=== PATIENT | male | born 1955 | race Hispanic/Latino ===

== ENCOUNTER 2017-03-14 14:47 | Emergency (ER) | payer MEDICAID ==
--- NOTE | 2017-03-14 15:27 | ED PDOC ---
HPI: General Adult Time Seen by Provider: 03/14/17 15:00 Chief Complaint (Nursing): Lower Extremity Problem/Injury Chief Complaint (Provider): left leg pain History Per: Patient History/Exam Limitations: no limitations Additional History Per: Patient, Family Additional Complaint(s): 61yo male brought by family for complaint of chronic left leg pain and swelling over 5 years. Pain is now severe. Family states patient refuses to see physicians and only agrees to come today due to severity of pain. pt denies headache chest pain or other complaints.. pt here w family Past Medical History Reviewed: Historical Data, Nursing Documentation, Vital Signs Vital Signs: Last Vital Signs Temp 97.8 F 03/14/17 20:43 Pulse 99 H 03/14/17 20:43 Resp 16 03/14/17 20:43 BP 148/93 H 03/14/17 20:43 Pulse Ox 100 03/14/17 22:47 - Medical History PMH: Anxiety, Atrial Fibrillation, CHF, Depression - Surgical History Surgical History: No Surg Hx - Family History Family History: States: Unknown Family Hx - Living Arrangements Living Arrangements: With Family - Social History Current smoker - smoking cessation education provided: No Alcohol: None Drugs: Denies - Immunization History Hx Tetanus Toxoid Vaccination: No Hx Influenza Vaccination: No Hx Pneumococcal Vaccination: No - Allergies Allergies/Adverse Reactions: Allergies Allergy/AdvReac Type Severity Reaction Status Date / Time No Known Allergies Allergy Verified 03/14/17 15:01 Review of Systems ROS Statement: Except As Marked, All Systems Reviewed And Found Negative Constitutional: Negative for: Fever Musculoskeletal: Positive for: Leg Pain (+swelling- left side) Physical Exam - Reviewed Nursing Documentation Reviewed: Yes Vital Signs Reviewed: Yes - Physical Exam Appears: Positive for: Non-toxic, No Acute Distress Head Exam: Positive for: ATRAUMATIC, NORMAL INSPECTION, NORMOCEPHALIC Skin: Positive for: Warm, Dry Eye Exam: Positive for: EOMI, PERRL ENT: Positive for: Other (Left ear cerumen but no sign of infection) Cardiovascular/Chest: Positive for: Regular Rate, Rhythm Respiratory: Positive for: Normal Breath Sounds. Negative for: Rales, Rhonchi, Wheezing Gastrointestinal/Abdominal: Positive for: Normal Exam, Soft Extremity: Positive for: Other (Left leg severe lymphedema. neurovascular intact ) Neurologic/Psych: Positive for: Alert, Oriented - Laboratory Results Result Diagrams: 03/14/17 16:30 03/14/17 16:00 - ECG ECG Rhythm: Positive for: Atrial Fibrillation (history of afib, rate controlled) O2 Sat by Pulse Oximetry: 100 (RA) Pulse Ox Interpretation: Normal Medical Decision Making Medical Decision Making: CC: lower extremity swelling left side appears like lymphadema 1529 Podiatry paged. Plan includes US left lower extremity, XR Left Tibia Fibula, Labs, blood & urine cultures, percocet. 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 Time: 170 U/S results reviewed PROCEDURE: Left lower extremity duplex venous sonography. HISTORY: Left lower extremity swelling. COMPARISON: None TECHNIQUE: Real-time ultrasound scan of the veins with color flow, spectral waveform analysis and compression FINDINGS: Left lower extremity: Normal flow, augmentation and compressibility were noted. No evidence of deep vein thrombosis. Calf edema identified. This is producing some narrowing of the left posterior tibial vein. IMPRESSION: Negative study for acute deep vein thrombosis. Time: 190 CT-head results reviewed PROCEDURE: CT HEAD WITHOUT CONTRAST. HISTORY: left sided pain COMPARISON: None available. TECHNIQUE: Axial computed tomography images were obtained through the head/brain without intravenous contrast. Radiation dose: Total exam DLP = 1702.31 mGy-cm. This CT exam was performed using one or more of the following dose reduction techniques: Automated exposure control, adjustment of the mA and/or kV according to patient size, and/or use of iterative reconstruction technique. FINDINGS: HEMORRHAGE: No intracranial hemorrhage. BRAIN: Diffuse atrophy with prominence of the ventricles and sulci noted. No mass effect or edema. Mild scattered white matter hypodensities, which are nonspecific, but often seen with chronic microvascular ischemic disease. Please note that MRI with diffusion imaging is more sensitive in the detection of acute ischemic event. VENTRICLES: No hydrocephalus. CALVARIUM: Unremarkable. PARANASAL SINUSES: Unremarkable as visualized. No significant inflammatory changes. MASTOID AIR CELLS: Unremarkable as visualized. No inflammatory changes. OTHER FINDINGS: Opacification of the left greater than right external auditory canals, likely cerumen. IMPRESSION: Generalized atrophy. Mild scattered nonspecific white matter changes. Opacification of the left greater than right external auditory canals, likely cerumen. Time: 1949 labs reviewed, Will replete potassium at this time. Discussed all results with patient and family, requesting patient be discharged home. emphazied to pt and family importance of outp follow up soon. States they will make sure patient follows up in 1-2 days in clinic. Patient notes he feeling completely better with his leg wrapped, no complaints at this time. Debrox prescription given to patient for his left ear cerumen. Disposition - Clinical Impression Clinical Impression: Acquired lymphedema of lower extremity - Patient ED Disposition Is Patient to be Admitted: No Counseled Patient/Family Regarding: Studies Performed, Diagnosis, Need For Followup - Disposition Referrals: [facility] [Outside] [facility] [Outside] Podiatry Clinic [Outside] Disposition: Routine/Home Disposition Time: 17:35 Condition: IMPROVED Additional Instructions: YOU MUST FOLLOW UP WITH THE CLINIC IN 1-2 DAYS WITHOUT FAIL. YOU ALSO SHOULD FOLLOW UP FOR YOUR LEFT LEG IN PODIATRY CLINIC. CONTINUE DEBROX DROPS IN YOUR LEFT EAR RETURN TO THE ED WITH ANY WORSENING OR CONCERNING SYMPTOMS. Instructions: Cerumen Impaction (ED), Leg Edema (ED) Additional Comments - Additional Comments Additional Comments: Scribe Attestation: Documented by Dewey Loredo acting as a scribe for Angelica Sawant MD. Scribe Attestation: All medical record entries made by the Scribe were at my direction and personally dictated by me. I have reviewed the chart and agree that the record accurately reflects my personal performance of the history, physical exam, medical decision making, and the department course for this patient. I have also personally directed, reviewed, and agree with the discharge instructions and disposition.
[2017-03-14] MEDS ORDERED: Oxycodone/Acetaminophen 5/325 mg Tab PO ONE (15:43)
--- NOTE | 2017-03-14 16:10 | CP.PCM.CON ---
History of Present Illness - History of Present Illness History of Present Illness: 61 year old male with PMHx of Afib, CHF, depression presents to the ED for left leg swelling and pain. He states that it has been swollen, draining and painful for 5 years. He states that he hasnt seen a doctor for this problem, or any doctor since 2008. He states that he was scared to be seen. He came today due to having pain in his left leg. He denies taking any pain medication for the left leg. Past Patient History - Past Social History Alcohol: None Drugs: Denies - CARDIAC Hx Atrial Fibrillation: Yes Hx Congestive Heart Failure: Yes - ENDOCRINE/METABOLIC Hx Diabetes Mellitus Type 2: Yes (possibly) - MUSCULOSKELETAL/RHEUMATOLOGICAL Hx Musculoskeletal Disorders: Yes - PSYCHIATRIC Hx Anxiety: Yes Hx Depression: Yes Meds Allergies/Adverse Reactions: Allergies Allergy/AdvReac Type Severity Reaction Status Date / Time No Known Allergies Allergy Verified 03/14/17 15:01 Physical Exam - Constitutional Appears: Non-toxic, No Acute Distress - Extremities Exam Additional comments: Vasc: DP and PT pulses non-palpable due to edema. CFT < 5 seconds to all digits b/l. Left lower extremity has +3 pitting edema Neuro:Gross sensation intact b/l Ortho: No pain on compression to left calf. Mild pain on palpation to left lower leg where region of erythema is located. Derm: Circumferential erythema, and thickening of the skin noted to the distal aspect of the left leg. Serous drainage noted. Mild malodor noted. No purulence, no probe to bone, no ulcerations, no increase in warmth noted. - Neurological Exam Neurological exam: Alert, Oriented x3 - Psychiatric Exam Psychiatric exam: Normal Affect, Normal Mood Results - Vital Signs Recent Vital Signs: Last Vital Signs Temp 98.3 F 03/14/17 15:02 Pulse 133 H 03/14/17 15:02 Resp 18 03/14/17 15:02 BP 199/112 H 03/14/17 15:02 Pulse Ox 100 03/14/17 15:51 - Labs Result Diagrams: 03/14/17 16:30 03/14/17 16:00 Assessment & Plan - Assessment and Plan (Free Text) Assessment: 61 year old male with left lower extremity edema Plan: Patient examined and evaluated Chart, labs, vitals reviewed Discussed in detail with attending, Dr. Mehta US reviewed-no DVT noted Radiographs reviewed- no acute fracture noted LLE dressed with xeroform, ABD, kerlix, TRENA Patient to follow up in Podiatry clinic
[2017-03-14] MEDS ORDERED: Oxycodone/Acetaminophen 5/325 mg Tab ONE (16:16)
--- NOTE | 2017-03-14 16:39 | US ---
PROCEDURE: Left lower extremity duplex venous sonography. HISTORY: Left lower extremity swelling. COMPARISON: None TECHNIQUE: Real-time ultrasound scan of the veins with color flow, spectral waveform analysis and compression FINDINGS: Left lower extremity: Normal flow, augmentation and compressibility were noted. No evidence of deep vein thrombosis. Calf edema identified. This is producing some narrowing of the left posterior tibial vein. IMPRESSION: Negative study for acute deep vein thrombosis.
[2017-03-14 16:59] LABS: ALKALINE PHOSPHATASE 87 U/L (38-126); ALT/SGPT 29 U/L (21-72); AST/SGOT 30 U/L (17-59); BILIRUBIN,TOTAL 0.6 mg/dl (0.2-1.3); BLOOD UREA NITROGEN 6 mg/dl (9-20); CALCIUM 9.6 mg/dL (8.4-10.2); CARBON DIOXIDE 26 mmol/L (22-30); CHLORIDE 106 mmol/L (98-107); GFR AFRICAN-AMERICAN > 60; GLUCOSE,RANDOM 127 mg/dL (75-110); POTASSIUM 3.4 MMOL/L (3.6-5.0); SODIUM 146 mmol/l (132-148); TOTAL PROTEIN 8.6 G/DL (6.3-8.2)
[2017-03-14] MEDS ORDERED: Carbamide Peroxide OTIC SOLUTION AU STA (17:03)
[2017-03-14 17:33] LABS: BASO % 0.6 % (0.0-2.0); EOS # 0.1 K/uL (0.0-0.7); EOS % 1.7 % (0.0-4.0); HEMATOCRIT 41.6 % (35.0-51.0); LYMPH % 16.4 % (20.0-40.0); MEAN CELL VOLUME 90.3 fl (80.0-94.0); MEAN CORPUSCULAR HEMOGLOBIN 30.6 pg (27.0-31.0); MEAN CORPUSCULAR HGB CONC 33.9 g/dL (33.0-37.0); MEAN PLATELET VOLUME 7.9 fl (7.2-11.7); MONO # 0.6 K/uL (0.0-0.8); MONO % 10.1 % (0.0-10.0); NEUT # 4.2 K/uL (1.8-7.0); NEUT % 71.2 % (50.0-75.0); NRBC % 0.1 % (0.0-0.0)
[2017-03-14 18:16] LABS: RBC URINE 1 /hpf (0-3); URINE BILIRUBIN NEGATIVE (NEGATIVE); URINE BLOOD NEGATIVE (NEGATIVE); URINE COLOR YELLOW (YELLOW); URINE GLUCOSE (UA) NEG (Normal); URINE KETONE NEGATIVE (NEGATIVE); URINE LEUKOCYTE ESTERASE NEG Leu/uL (Negative); URINE PROTEIN NEGATIVE (NEGATIVE); URINE UROBILINOGEN 0.2-1.0 mg/dL (0.2-1.0); WBC URINE < 1 /hpf (0-5)
--- NOTE | 2017-03-14 18:55 | CT ---
PROCEDURE: CT HEAD WITHOUT CONTRAST. HISTORY: left sided pain COMPARISON: None available. TECHNIQUE: Axial computed tomography images were obtained through the head/brain without intravenous contrast. Radiation dose: Total exam DLP = 1702.31 mGy-cm. This CT exam was performed using one or more of the following dose reduction techniques: Automated exposure control, adjustment of the mA and/or kV according to patient size, and/or use of iterative reconstruction technique. FINDINGS: HEMORRHAGE: No intracranial hemorrhage. BRAIN: Diffuse atrophy with prominence of the ventricles and sulci noted. No mass effect or edema. Mild scattered white matter hypodensities, which are nonspecific, but often seen with chronic microvascular ischemic disease. Please note that MRI with diffusion imaging is more sensitive in the detection of acute ischemic event. VENTRICLES: No hydrocephalus. CALVARIUM: Unremarkable. PARANASAL SINUSES: Unremarkable as visualized. No significant inflammatory changes. MASTOID AIR CELLS: Unremarkable as visualized. No inflammatory changes. OTHER FINDINGS: Opacification of the left greater than right external auditory canals, likely cerumen. IMPRESSION: Generalized atrophy. Mild scattered nonspecific white matter changes. Opacification of the left greater than right external auditory canals, likely cerumen.
[2017-03-14] MEDS ORDERED: Potassium Chloride 20 mEq ER Tab PO ONE (19:30)
[2017-03-14 20:44] VITALS: BP 148/93; PULSE 99; RESP 16; TEMP 97.8
[2017-03-14 22:42] VITALS: O2SAT 100
--- NOTE | 2017-03-15 18:28 | CARD ---
APPROVED REPORT EKG Measurement Heart [id number] <Conclusion> Atrial fibrillation Nonspecific ST abnormality Abnormal ECG
--- NOTE | 2017-03-16 10:30 | RAD ---
PROCEDURE: Left tibia and fibula HISTORY: leg swelling COMPARISON: None TECHNIQUE: Standard protocol for this study/examination. FINDINGS: No acute osseous abnormalities. Incomplete degenerative changes left knee and ankle. Profound soft tissue swelling, edema IMPRESSION: Soft tissue swelling without acute articular or osseous abnormality.
== END 2017-03-14 21:26 | disposition home or self-care (01) ==
LOC: H.ER 14:47
DX: I89.0 Lymphedema, not elsewhere classified (principal); M79.605 Pain in left leg; F41.9 Anxiety disorder, unspecified; I48.91 Unspecified atrial fibrillation

== ENCOUNTER 2017-09-21 00:59 | Inpatient (IN) | payer MEDICAID, OTHER ==
[2017-09-21 01:00] VITALS: BMI 44.3
--- NOTE | 2017-09-21 02:07 | ED PDOC ---
Upper Extremity Pain/Injury Time Seen by Provider: 09/21/17 01:15 Chief Complaint (Nursing): Upper Extremity Problem/Injury Chief Complaint (Provider): Numbness and Chest Palpitation History Per: Patient History/Exam Limitations: no limitations Onset/Duration Of Symptoms: Hrs Current Symptoms Are (Timing): Gone Now Additional Complaint(s): Patient is a 62 y/o male with a past medical history of atrial fibrillation ( not on any treatment) and depression, who presents to the ED complaining of chest palpitations and numbness of the entire left side of the body at 21:00 tonight. Patient notes the sensation felt like pins and needles, and reports that he could not move his left arm for 2 minutes as it went completely "". He adds that although his left leg is always weak it was even weaker during those 2 minutes, and that although its strength returned to normal the tingling persisted for 1 to 2 hours. Patient claims he did not come to the ED because " he doesn't want to be bothered", and states that he no longer has any complaints or symptoms upon arriving to the ED aside from palpitations. PCP: FAMILY PROVIDER,NO NIHSS Stroke Scale - Date/Time Evaluation Performed Date Performed: 09/21/17 Time Performed: 01:30 When Was NIHSS Performed: Baseline - How Severe is the Stroke Level of Consciousness: 0=Alert LOC to Questions: 0=Both comments correct LOC to commands: 0=Obeys both correctly Best Gaze: 0=Normal Visual: 0=No visual loss Motor Arm - Left: 0=No drift Motor Arm - Right: 0=No drift Motor Leg - Left: 0=No drift Motor Leg - Right: 0=No drift Limb Ataxia: 0=Absent Sensory: 0=Normal Best Language: 0=No aphasia Dysarthia: 0=Normal articulation Extinction & Inattention (Neglect): 0=Normal, no object Past Medical History Reviewed: Historical Data, Nursing Documentation, Vital Signs Vital Signs: Last Vital Signs Temp 97.8 F 09/21/17 01:20 Pulse 106 H 09/21/17 01:56 Resp 19 09/21/17 01:56 BP 135/72 09/21/17 01:56 Pulse Ox 98 09/21/17 01:56 - Medical History PMH: Anxiety, Atrial Fibrillation, CHF, Depression - Family History Family History: States: No Known Family Hx, Unknown Family Hx - Immunization History Hx Tetanus Toxoid Vaccination: No Hx Influenza Vaccination: No Hx Pneumococcal Vaccination: No - Home Medications Home Medications: Ambulatory Orders Medication Instructions Recorded No Known Home Med 09/21/17 - Allergies Allergies/Adverse Reactions: Allergies Allergy/AdvReac Type Severity Reaction Status Date / Time basil Allergy ANAPHYLAXIS Verified 09/21/17 01:27 raspberry Allergy RASH Verified 09/21/17 02:00 shellfish derived Allergy ANAPHYLAXIS Verified 09/21/17 01:27 Review of Systems ROS Statement: Except As Marked, All Systems Reviewed And Found Negative Cardiovascular: Positive for: Palpitations Neurological: Positive for: Weakness (left leg), Numbness (left side of body and left arm) Physical Exam - Reviewed Nursing Documentation Reviewed: Yes Vital Signs Reviewed: Yes - Physical Exam Appears: Positive for: No Acute Distress (Appears obese) Head Exam: Positive for: ATRAUMATIC, NORMOCEPHALIC Skin: Positive for: Normal Color, Warm, Dry Eye Exam: Positive for: Normal appearance, EOMI, PERRL Neck: Positive for: Normal, Painless ROM, Supple Cardiovascular/Chest: Positive for: Irregularly Irregular. Negative for: Murmur Respiratory: Positive for: Normal Breath Sounds. Negative for: Respiratory Distress Gastrointestinal/Abdominal: Positive for: Normal Exam, Soft. Negative for: Tenderness Back: Positive for: Normal Inspection. Negative for: L CVA Tenderness, R CVA Tenderness, Vertebral Tenderness Extremity: Positive for: Normal ROM, Swelling (left leg chronically swollen with thrombophlebitis). Negative for: Tenderness Neurologic/Psych: Positive for: Alert, Oriented (x3). Negative for: Motor/ Sensory Deficits - Laboratory Results Result Diagrams: 09/21/17 01:50 09/21/17 03:04 - ECG O2 Sat by Pulse Oximetry: 98 (RA) Pulse Ox Interpretation: Normal Medical Decision Making Medical Decision Making: Time: 01:34 --Initial Impression: Atrial fibrillation with RVR and possible Transient Ischemic Attack --Initial Plan: --Type and Screen --EKG --Labs --Troponin I --PT/PTT --Chest XR --Cardizem 10mg IVP --Urinalysis Time: 01:59 --CT Head W/O Contrast Time: 02:17 --Crisis Evaluation Time: 02:48 CT Head W/O Contrast Results FINDINGS: Brain: Mild atrophy. No intracranial hemorrhage. No mass. Few scattered foci of decreased attenuation within periventricular/subcortical white matter. No definite edema. Ventricles: No hydrocephalus. Bones/joints: No acute fracture. Soft tissues: Unremarkable. Vasculature: Minimal atherosclerotic disease of intracranial arteries. Sinuses: No acute sinusitis. Mastoid air cells: No mastoid effusion. Orbits: Unremarkable as visualized. IMPRESSION: 1. Nonspecific white matter changes. Acute infarction may be CT occult within first 24 hours. If a focal deficit persists, consider followup CT or MRI for further evaluation. 2. Incidental/non-acute findings are described above. 345 Pt. states that he is feeling much better. Agrees to stay in hospital. Dr. Quiroz aware. ASA ordered. Scribe Attestation: Documented by Trinidad Cantrell, acting as a scribe for Jonh Layne MD Provider Scribe Attestation: All medical record entries made by the Scribe were at my direction and personally dictated by me. I have reviewed the chart and agree that the record accurately reflects my personal performance of the history, physical exam, medical decision making, and the department course for this patient. I have also personally directed, reviewed, and agree with the discharge instructions and disposition. Disposition - Clinical Impression Clinical Impression: TIA (transient ischemic attack), Atrial fibrillation - Disposition Disposition Time: 03:45 Condition: STABLE Forms: [employer] ([place])
[2017-09-21 02:12] LABS: BASO % 0.3 % (0.0-2.0); EOS # 0.1 K/uL (0.0-0.7); EOS % 1.5 % (0.0-4.0); HEMATOCRIT 44.1 % (35.0-51.0); LYMPH # 1.2 K/uL (1.0-4.3); LYMPH % 15.3 % (20.0-40.0); MEAN CELL VOLUME 92.3 fl (80.0-94.0); MEAN CORPUSCULAR HEMOGLOBIN 30.5 pg (27.0-31.0); MEAN PLATELET VOLUME 7.9 fl (7.2-11.7); MONO # 0.8 K/uL (0.0-0.8); MONO % 10.1 % (0.0-10.0); NEUT # 5.5 K/uL (1.8-7.0); NEUT % 72.8 % (50.0-75.0); RED CELL DISTRIBUTION WIDTH 14.7 % (11.5-14.5); WHITE BLOOD COUNT 7.6 K/uL (4.8-10.8)
[2017-09-21 02:18] LABS: PARTIAL THROMBOPLASTIN TIME 31.4 Seconds (25.6-37.1)
--- NOTE | 2017-09-21 02:49 | CT ---
EXAM: CT Head Without Intravenous Contrast CLINICAL HISTORY: 62 years old, male; Signs and symptoms; Weakness, extremity; Left; Additional info: L sided weakness, afib TECHNIQUE: Axial computed tomography images of the head/brain without intravenous contrast. All CT scans at this facility use one or more dose reduction techniques, viz.: automated exposure control; ma/kV adjustment per patient size (including targeted exams where dose is matched to indication; i.e. head); or iterative reconstruction technique. Coronal and sagittal reformatted images were created and reviewed. COMPARISON: CT - HEAD W/O CONTRAST 2017-03-14 18:37 FINDINGS: Brain: Mild atrophy. No intracranial hemorrhage. No mass. Few scattered foci of decreased attenuation within periventricular/subcortical white matter. No definite edema. Ventricles: No hydrocephalus. Bones/joints: No acute fracture. Soft tissues: Unremarkable. Vasculature: Minimal atherosclerotic disease of intracranial arteries. Sinuses: No acute sinusitis. Mastoid air cells: No mastoid effusion. Orbits: Unremarkable as visualized. IMPRESSION: 1. Nonspecific white matter changes. Acute infarction may be CT occult within first 24 hours. If a focal deficit persists, consider followup CT or MRI for further evaluation. 2. Incidental/non-acute findings are described above.
[2017-09-21 03:23] LABS: BLOOD UREA NITROGEN 11 mg/dl (9-20); CALCIUM 9.4 mg/dL (8.4-10.2); CARBON DIOXIDE 25 mmol/L (22-30); CHLORIDE 106 mmol/L (98-107); GFR AFRICAN-AMERICAN > 60; GLUCOSE,RANDOM 117 mg/dL (75-110); POTASSIUM 3.7 MMOL/L (3.6-5.0); SODIUM 144 mmol/l (132-148)
[2017-09-21 03:41] LABS: RBC URINE < 1 /hpf (0-3); URINE BACTERIA RARE (<OCC); URINE BILIRUBIN NEGATIVE (NEGATIVE); URINE BLOOD SMALL (NEGATIVE); URINE COLOR STRAW (YELLOW); URINE GLUCOSE (UA) NEG (Normal); URINE KETONE NEGATIVE (NEGATIVE); URINE LEUKOCYTE ESTERASE NEG Leu/uL (Negative); URINE PROTEIN NEGATIVE (NEGATIVE); URINE UROBILINOGEN 0.2-1.0 mg/dL (0.2-1.0); WBC URINE < 1 /hpf (0-5)
--- NOTE | 2017-09-21 04:07 | CP.PCM.HP ---
History of Present Illness - History of Present Illness History of Present Illness: PCP: None Chief Complaint: Numbness to the left side of the body/ Palpitations The patient was seen and examined in the ED HPI: 62 years old male with hx of Chronic left lower extremity lymphedema, HTN, CHF, A Fib not on anticoagulant, non compliant with medications, comes with sudden unset of palpitation, associated with numbness and pins and needle like sensation to the entire left side of the body. He could not move the left upper extremity for 2 minutes because of weakness. His left leg was also having the same sensation and weakness. The symptoms resolved before he arrived to the ED. In the ED his NIHSS was 0 and the patient was given a bolus of Cardizem for rapid A Fib. PMH: Anxiety and Depression; Atrial Fibrillation, CHF; DM II; HTN; Chronic Left leg lymphedema with ulceration PSH: No Surgical Hx SH: No illegal drug use; no Alcohol; No Smoking of Cigarettes; Live with family FH: States: No Known Family Hx, Unknown Family Hx Allergies: NKDA Basil; Raspberry; Shellfish Medication: None Present on Admission - Present on Admission Any Indicators Present on Admission: No History of DVT/PE: No History of Uncontrolled Diabetes: No Urinary Catheter: No Decubitus Ulcer Present: No Review of Systems - Constitutional Constitutional: absent: Anorexia, Chills, Fatigue, Fever, Lethargy - EENT Eyes: Requires Corrective Lenses. absent: Diplopia, Floaters, Photophobia, Sees Flashes Ears: absent: Decreased Hearing, Ear Discharge, Tinnitus Nose/Mouth/Throat: absent: Epistaxis, Nasal Congestion, Nasal Discharge, Sinus Pain, Sinus Pressure - Cardiovascular Cardiovascular: Dyspnea, Palpitations. absent: Chest Pain, Paroxysmal Nocturnal Dyspnea - Respiratory Respiratory: Dyspnea. absent: Cough, Wheezing, Stridor - Gastrointestinal Gastrointestinal: absent: Abdominal Pain, Constipation, Diarrhea, Nausea, Vomiting Additional comments: Abdominal mass. - Genitourinary Genitourinary: Urinary Frequency. absent: Dysuria, Flank Pain, Hematuria - Musculoskeletal Musculoskeletal: absent: Arthralgias Additional comments: Pain to left lower extremity - Integumentary Additional comments: left leg lymphedema - Neurological Neurological: Numbness, Focal Weakness, Paresthesias, Weakness. absent: Confusion Additional comments: left side of body weakness and paresthesias - Psychiatric Psychiatric: Anxiety, Depression. absent: Panic Attacks - Endocrine Endocrine: Palpitations, Polyuria. absent: Polydipsia, Polyphagia - Hematologic/Lymphatic Hematologic: absent: Easy Bleeding, Easy Bruising Past Patient History - Past Medical History & Family History Past Medical History?: Yes - Past Social History Smoking Status: Never Smoked Chewing Tobacco Use: No Cigar Use: No Alcohol: None Drugs: Denies Home Situation {Lives}: With Family - CARDIAC Hx Atrial Fibrillation: Yes Hx Congestive Heart Failure: Yes - PULMONARY Hx Emphysema: No - NEUROLOGICAL Hx Neurological Disorder: No - HEENT Hx HEENT Problems: No - RENAL Hx Chronic Kidney Disease: No - ENDOCRINE/METABOLIC Hx Diabetes Mellitus Type 2: Yes (possibly) - HEMATOLOGICAL/ONCOLOGICAL Hx Blood Disorders: No - INTEGUMENTARY Hx Dermatological Problems: No - MUSCULOSKELETAL/RHEUMATOLOGICAL Hx Musculoskeletal Disorders: Yes Other/Comment: left leg lymphedema - GASTROINTESTINAL Hx Gastrointestinal Disorders: No - GENITOURINARY/GYNECOLOGICAL Hx Genitourinary Disorders: No - PSYCHIATRIC Hx Anxiety: Yes Hx Depression: Yes - SURGICAL HISTORY Hx Surgeries: No - ANESTHESIA Hx Anesthesia: No Meds Allergies/Adverse Reactions: Allergies Allergy/AdvReac Type Severity Reaction Status Date / Time basil Allergy ANAPHYLAXIS Verified 09/21/17 01:27 raspberry Allergy RASH Verified 09/21/17 02:00 shellfish derived Allergy ANAPHYLAXIS Verified 09/21/17 01:27 Physical Exam - Constitutional Appears: No Acute Distress - Head Exam Head Exam: ATRAUMATIC, NORMAL INSPECTION, NORMOCEPHALIC - Eye Exam Eye Exam: EOMI, Normal appearance Pupil Exam: NORMAL ACCOMODATION, PERRL - ENT Exam ENT Exam: Mucous Membranes Moist, Normal Exam, Normal External Ear Exam, Normal Oropharynx - Neck Exam Neck exam: Positive for: Full Rom, Normal Inspection. Negative for: Lymphadenopathy, Tenderness - Respiratory Exam Respiratory Exam: Clear to Auscultation Bilateral. absent: Rhonchi, Wheezes - Cardiovascular Exam Cardiovascular Exam: Irregular Rhythm, +S1, +S2. absent: Gallop, JVD - GI/Abdominal Exam Additional comments: Obese, soft, non tender with mass 6cm x6cm at the umbilical region, mobile and crepitus of palpation. - Rectal Exam Rectal Exam: Deferred - Extremities Exam Additional comments: Left leg Swoolen with non pitting edema4+, non tender to palpation with dressing at the ankle area of ulceration. - Back Exam Back exam: absent: CVA tenderness (L), CVA tenderness (R) Additional comments: Carbuncle at mid lower back. - Neurological Exam Neurological exam: Alert, CN II-XII Intact, Oriented x3, Reflexes Normal - Psychiatric Exam Psychiatric exam: Normal Affect, Normal Mood - Skin Skin Exam: Dry, Normal Color, Warm Results - Vital Signs Recent Vital Signs: Last Vital Signs Temp 97.8 F 09/21/17 01:20 Pulse 102 H 09/21/17 04:01 Resp 16 09/21/17 04:01 BP 168/81 H 09/21/17 04:01 Pulse Ox 98 09/21/17 04:01 - Labs Result Diagrams: 09/21/17 01:50 09/21/17 03:04 Labs: Laboratory Results - last 24 hr 09/21/17 09/21/17 09/21/17 01:50 01:50 03:00 WBC 7.6 RBC 4.78 Hgb 14.6 Hct 44.1 MCV 92.3 D MCH 30.5 MCHC 33.0 RDW 14.7 H Plt Count 263 MPV 7.9 Neut % (Auto) 72.8 Lymph % (Auto) 15.3 L [place] % (Auto) 10.1 H Eos % (Auto) 1.5 Baso % (Auto) 0.3 Neut # 5.5 Lymph # 1.2 [place] # 0.8 Eos # 0.1 Baso # 0.0 PT 11.9 INR 1.1 APTT 31.4 Sodium Potassium Chloride Carbon Dioxide Anion Gap BUN Creatinine Est GFR ( Amer) Est GFR (Non-Af Amer) Random Glucose Calcium Troponin I NT-Pro-B Natriuret Pep Urine Color Straw Urine Clarity Clear Urine pH 7.0 Ur Specific [place] < 1.005 Urine Protein Negative Urine Glucose (UA) Neg Urine Ketones Negative Urine Blood Small Urine Nitrate Negative Urine Bilirubin Negative Urine Urobilinogen 0.2-1.0 Ur Leukocyte Esterase Neg Urine RBC (Auto) < 1 Urine Microscopic WBC < 1 Urine Bacteria Rare 09/21/17 03:04 WBC RBC Hgb Hct MCV MCH MCHC RDW Plt Count MPV Neut % (Auto) Lymph % (Auto) [place] % (Auto) Eos % (Auto) Baso % (Auto) Neut # Lymph # [place] # Eos # Baso # PT INR APTT Sodium 144 Potassium 3.7 Chloride 106 Carbon Dioxide 25 Anion Gap 17 BUN 11 Creatinine 0.7 L Est GFR ( Amer) > 60 Est GFR (Non-Af Amer) > 60 Random Glucose 117 H Calcium 9.4 Troponin I 0.0180 NT-Pro-B Natriuret Pep 529 Urine Color Urine Clarity Urine pH Ur Specific [place] Urine Protein Urine Glucose (UA) Urine Ketones Urine Blood Urine Nitrate Urine Bilirubin Urine Urobilinogen Ur Leukocyte Esterase Urine RBC (Auto) Urine Microscopic WBC Urine Bacteria - EKG Data EKG comments: A Fib 108/min - Imaging and Cardiology Chest x-ray Status: Image reviewed by me Additional comment: Cardiomegaly Mild diffuse congestion CT scan - head Status: Image reviewed by me, Report reviewed by me Additional comment: FINDINGS: Brain: Mild atrophy. No intracranial hemorrhage. No mass. Few scattered foci of decreased attenuation within periventricular/subcortical white matter. No definite edema. Ventricles: No hydrocephalus. Bones/joints: No acute fracture. Soft tissues: Unremarkable. Vasculature: Minimal atherosclerotic disease of intracranial arteries. Sinuses: No acute sinusitis. Mastoid air cells: No mastoid effusion. Orbits: Unremarkable as visualized. IMPRESSION: 1. Nonspecific white matter changes. Acute infarction may be CT occult within first 24 hours. If a focal deficit persists, consider followup CT or MRI for further evaluation. 2. Incidental/non-acute findings are described above. Assessment & Plan - Assessment and Plan (Free Text) Assessment: #. TIA r/o CVA #. A Fib with rapid response #. HTN #. left Leg Lymphedema #. Anxiety with Depression Plan: 62 years old male with hx of Chronic left lower extremity lymphedema, HTN, CHF , A Fib not on anticoagulant, non compliant with medications, comes with sudden unset of palpitation, associated with numbness and pins and needle like sensation to the entire left side of the body. With 2 minutes of complete weakness to the left upper and lower extremities. The symptoms resolved before he arrived to the ED. In the ED he was found to be in Rapid A Fib. #. TIA r/o CVA - Consult Neurology Dr Izabela Durham - Neuro checks Q4 hrs - MRI/MRA of Brain and neck - lipid panel - ASA - Lipitor - OT/PT #. A Fib with rapid response, now rate controlled - Consult cardiology Dr Alvarado - Cardiac monitoring - ECHO to evaluate for Cavity size/ thrombus - Metoprolol - Therapeutic Lovenox - Start Coumadin if Apixaban is not possible for this patient #. HTN - Metoprolol - follow Blood pressure #. left Leg Lymphedema - Consult Podiatry Dr Nails for left ankle ulceration and lymphedema. #. Anxiety with Depression - Consult Psychiatry Dr Melara #. DVT prophylaxis with Lovenox #. Code Status: Full - Date & Time Date: 09/21/17 Time: 04:07
[2017-09-21] MEDS ORDERED: Enoxaparin 100 mg Syringe SC SCH (05:00)
[2017-09-21] MEDS ORDERED: Influenza Vaccine 18yr & older 0.5 ML/45 MCG SYR IM ONE (06:00)
[2017-09-21] MEDS ORDERED: Pneumococcal 23-Valent Vaccine IM ONE (06:00)
[2017-09-21] MEDS ORDERED: Enoxaparin 120 mg Syringe SC SCH (06:00)
[2017-09-21] MEDS: Enoxaparin 120 mg Syringe SC SCH ×2 (06:09→18:44)
[2017-09-21 07:25] LABS: CHOLESTEROL 126 mg/dL (0-199)
[2017-09-21 08:39] LABS: BILIRUBIN,TOTAL 0.4 mg/dl (0.2-1.3); TOTAL PROTEIN 7.3 G/DL (6.3-8.2)
[2017-09-21] MEDS ORDERED: Enoxaparin 40 mg Syringe SC SCH (09:00)
[2017-09-21 09:09] LABS: THYROID STIMULATING HORMONE 1.1 mIU/ML (0.46-4.68)
--- NOTE | 2017-09-21 09:47 | CP.PCM.CON ---
History of Present Illness - History of Present Illness History of Present Illness: 62 y/o male seen at bedside by podiatry after consult for left leg swelling. Pt states he is in the hospital for weakness, palpatitations and manifestations of his atrial fibrillation. Pt states he has a history of draining wounds on the inside of his left leg and ankle. Pt states he was seen and followed by Dr. Nails in the wound care center up until roughly May of this year. Pt denies having any pain in the left leg. Pt denies F/C/N/V/CP/SOB at this time. Pt denies calf pain. PMH: atrial fibrillation, CHF, depression PSH: denies All: seafood, basil, raspberries Social: denies Review of Systems - Review of Systems All systems: reviewed and no additional remarkable complaints except (per HPI) Past Patient History - Past Medical History & Family History Past Medical History?: Yes - Past Social History Smoking Status: Never Smoked Chewing Tobacco Use: No Cigar Use: No Alcohol: None Drugs: Denies Home Situation {Lives}: With Family - CARDIAC Hx Atrial Fibrillation: Yes Hx Congestive Heart Failure: Yes - PULMONARY Hx Emphysema: No - NEUROLOGICAL Hx Neurological Disorder: No - HEENT Hx HEENT Problems: No - RENAL Hx Chronic Kidney Disease: No - ENDOCRINE/METABOLIC Hx Diabetes Mellitus Type 2: Yes (possibly) - HEMATOLOGICAL/ONCOLOGICAL Hx Blood Disorders: No - INTEGUMENTARY Hx Dermatological Problems: No - MUSCULOSKELETAL/RHEUMATOLOGICAL Hx Musculoskeletal Disorders: Yes Other/Comment: left leg lymphedema - GASTROINTESTINAL Hx Gastrointestinal Disorders: No - GENITOURINARY/GYNECOLOGICAL Hx Genitourinary Disorders: No - PSYCHIATRIC Hx Anxiety: Yes Hx Depression: Yes - SURGICAL HISTORY Hx Surgeries: No - ANESTHESIA Hx Anesthesia: No Meds Allergies/Adverse Reactions: Allergies Allergy/AdvReac Type Severity Reaction Status Date / Time basil Allergy ANAPHYLAXIS Verified 09/21/17 01:27 raspberry Allergy RASH Verified 09/21/17 02:00 shellfish derived Allergy ANAPHYLAXIS Verified 09/21/17 01:27 - Medications Medications: Current Medications Aspirin (Ecotrin) 81 mg PO DAILY [facility] Last Admin: 09/21/17 09:15 Dose: 81 mg Atorvastatin Calcium (Lipitor) 20 mg PO DAILY [facility] Last Admin: 09/21/17 09:08 Dose: 20 mg Enoxaparin Sodium (Lovenox) 110 mg SC Q12H [facility] PRN Reason: Protocol Last Admin: 09/21/17 06:09 Dose: 110 mg Metoprolol Tartrate (Lopressor) 12.5 mg PO Q12 [facility] Last Admin: 09/21/17 09:16 Dose: 12.5 mg Physical Exam - Constitutional Appears: Well, Non-toxic, No Acute Distress - Extremities Exam Additional comments: LLE focused examination: Vasc: DP/PT pulses are palpable 2/4. Significant +4 pitting edema noted from proximal leg at level of tibial tuberosity extending distally to digits. CFT < 3 sec to all digits. Temperature gradient is warm to cool. Derm: Significant lymphedematous changes noted to LLE with fissuring of skin folds noted. No active drainage, no malodor, no erythema. Neuro: Protective sensation grossly intact Ortho: No tenderness on palpation or squeezing of posterior calf. No tenderness on palpation of left leg at fissure sites - Neurological Exam Neurological exam: Alert, Oriented x3 - Psychiatric Exam Psychiatric exam: Normal Affect, Normal Mood Results - Vital Signs Recent Vital Signs: Last Vital Signs Temp 98.9 F 09/21/17 08:20 Pulse 90 09/21/17 09:16 Resp 18 09/21/17 08:20 BP 161/102 H 09/21/17 09:16 Pulse Ox 97 09/21/17 08:20 - Labs Result Diagrams: 09/21/17 01:50 09/21/17 03:04 Labs: Laboratory Results - last 24 hr 09/21/17 09/21/17 09/21/17 01:50 01:50 01:50 WBC 7.6 RBC 4.78 Hgb 14.6 Hct 44.1 MCV 92.3 D MCH 30.5 MCHC 33.0 RDW 14.7 H Plt Count 263 MPV 7.9 Neut % (Auto) 72.8 Lymph % (Auto) 15.3 L [place] % (Auto) 10.1 H Eos % (Auto) 1.5 Baso % (Auto) 0.3 Neut # 5.5 Lymph # 1.2 [place] # 0.8 Eos # 0.1 Baso # 0.0 PT 11.9 INR 1.1 APTT 31.4 Sodium Potassium Chloride Carbon Dioxide Anion Gap BUN Creatinine Est GFR ( Amer) Est GFR (Non-Af Amer) Random Glucose Calcium Total Bilirubin Direct Bilirubin AST ALT Alkaline Phosphatase Troponin I NT-Pro-B Natriuret Pep Total Protein Albumin Globulin Albumin/Globulin Ratio Triglycerides Cholesterol LDL Cholesterol Direct HDL Cholesterol TSH 3rd Generation Urine Color Urine Clarity Urine pH Ur Specific [place] Urine Protein Urine Glucose (UA) Urine Ketones Urine Blood Urine Nitrate Urine Bilirubin Urine Urobilinogen Ur Leukocyte Esterase Urine RBC (Auto) Urine Microscopic WBC Urine Bacteria Blood Type AB POSITIVE Antibody Screen Negative BBK History Checked Patient has bt 09/21/17 09/21/17 09/21/17 03:00 03:04 06:00 WBC RBC Hgb Hct MCV MCH MCHC RDW Plt Count MPV Neut % (Auto) Lymph % (Auto) [place] % (Auto) Eos % (Auto) Baso % (Auto) Neut # Lymph # [place] # Eos # Baso # PT INR APTT Sodium 144 Potassium 3.7 Chloride 106 Carbon Dioxide 25 Anion Gap 17 BUN 11 Creatinine 0.7 L Est GFR ( Amer) > 60 Est GFR (Non-Af Amer) > 60 Random Glucose 117 H Calcium 9.4 Total Bilirubin Direct Bilirubin AST ALT Alkaline Phosphatase Troponin I 0.0180 NT-Pro-B Natriuret Pep 529 Total Protein Albumin Globulin Albumin/Globulin Ratio Triglycerides 51 Cholesterol 126 LDL Cholesterol Direct 71 HDL Cholesterol 38 TSH 3rd Generation Urine Color Straw Urine Clarity Clear Urine pH 7.0 Ur Specific [place] < 1.005 Urine Protein Negative Urine Glucose (UA) Neg Urine Ketones Negative Urine Blood Small Urine Nitrate Negative Urine Bilirubin Negative Urine Urobilinogen 0.2-1.0 Ur Leukocyte Esterase Neg Urine RBC (Auto) < 1 Urine Microscopic WBC < 1 Urine Bacteria Rare Blood Type Antibody Screen BBK History Checked 09/21/17 06:00 WBC RBC Hgb Hct MCV MCH MCHC RDW Plt Count MPV Neut % (Auto) Lymph % (Auto) [place] % (Auto) Eos % (Auto) Baso % (Auto) Neut # Lymph # [place] # Eos # Baso # PT INR APTT Sodium Potassium Chloride Carbon Dioxide Anion Gap BUN Creatinine Est GFR ( Amer) Est GFR (Non-Af Amer) Random Glucose Calcium Total Bilirubin 0.4 Direct Bilirubin 0.2 AST 30 ALT 34 Alkaline Phosphatase 59 Troponin I NT-Pro-B Natriuret Pep Total Protein 7.3 Albumin 3.6 Globulin 3.7 Albumin/Globulin Ratio 1.0 Triglycerides Cholesterol LDL Cholesterol Direct HDL Cholesterol TSH 3rd Generation 1.10 Urine Color Urine Clarity Urine pH Ur Specific [place] Urine Protein Urine Glucose (UA) Urine Ketones Urine Blood Urine Nitrate Urine Bilirubin Urine Urobilinogen Ur Leukocyte Esterase Urine RBC (Auto) Urine Microscopic WBC Urine Bacteria Blood Type Antibody Screen BBK History Checked Assessment & Plan - Assessment and Plan (Free Text) Assessment: 62 y/o male with PMHx of CHF, atrial fibrillation and depression with left leg lymphedema with non-draining skin fissures Plan: Pt seen and evaluated at bedside Discussed plan with attending Dr. Nails Chart, labs and vitals reviewed- WBC 7.6, afebrile Extremity U/S shows no evidence of DVT Dressed LLE with xeroform, ABD, kerlix and TRENA compression Podiatry will continue to follow while in house Stable from podiatry standpoint Thank you for this consult
--- NOTE | 2017-09-21 11:52 | CP.PCM.CON ---
History of Present Illness - History of Present Illness History of Present Illness: Psychiatry Consult Chief Complaint: "I feel depressed sometimes." HPI: 62 years old male with hx of Chronic left lower extremity lymphedema, HTN, CHF, A Fib not on anticoagulant, non compliant with medications, presents w/ TIA r/o CVA and A Fib with rapid response, now rate controlled. Patient reports that he has a long history of depression and anxiety. He denies current ideation to harm himself. States that his buddhism beliefs would prevent him from trying to harm himself. He denies psychotic symptoms. He does not want to start antidepressant medication at this time, nor does he want inpatient psychiatric admission, but he was agreeable to outpatient treatment. NO AH/VH/SI/HI/delusions/paranoia/kenny/obessions/compulsions. +Sleep disturbances. +Normal appetite. Patient discussed his grief over the loss of his mother and other family members. PCP: None PPH: H/o of diagnosis of depression in 2000 and outpatient psychiatric treatment , but patient was not compliant with treatment and does not recall psychiatric medications he took in the past. PMH: Anxiety and Depression; Atrial Fibrillation, CHF; DM II; HTN; Chronic Left leg lymphedema with ulceration PSH: No Surgical Hx SH: No illegal drug use; no Alcohol; No Smoking of Cigarettes; Lives with family Allergies: NKDA; Basil; Raspberry; Shellfish Medication: None MSE: A+ O x 3, calm, cooperative, good eye contact, speech normal, mood "depressed" affect- broad/full range, thought process- linear/coherent, thought content- no delusions, no hallucinations, NO SI/HI, fair I/J. Impression: 62 years old male with hx of Chronic left lower extremity lymphedema , HTN, CHF, A Fib not on anticoagulant, non compliant with medications, presents w/ TIA r/o CVA and A Fib with rapid response, now rate controlled. Patient presents w/ chronic depression and anxiety without suicidal plan/intent in the context of noncompliance w/ psychiatric treatment. He states that he is not interested in voluntary psychiatric admission or starting antidepressants at this time, but is agreeable to outpatient treatment. -NO 1:1 indicated, patient does not need psychiatric admission at this time -Please make referral for outpatient psychiatric treatment upon discharge (can consider [facility]) Past Patient History - Past Medical History & Family History Past Medical History?: Yes - Past Social History Smoking Status: Never Smoked Chewing Tobacco Use: No Cigar Use: No Alcohol: None Drugs: Denies Home Situation {Lives}: With Family - CARDIAC Hx Atrial Fibrillation: Yes Hx Congestive Heart Failure: Yes - PULMONARY Hx Emphysema: No - NEUROLOGICAL Hx Neurological Disorder: No - HEENT Hx HEENT Problems: No - RENAL Hx Chronic Kidney Disease: No - ENDOCRINE/METABOLIC Hx Diabetes Mellitus Type 2: Yes (possibly) - HEMATOLOGICAL/ONCOLOGICAL Hx Blood Disorders: No - INTEGUMENTARY Hx Dermatological Problems: No - MUSCULOSKELETAL/RHEUMATOLOGICAL Hx Musculoskeletal Disorders: Yes Other/Comment: left leg lymphedema - GASTROINTESTINAL Hx Gastrointestinal Disorders: No - GENITOURINARY/GYNECOLOGICAL Hx Genitourinary Disorders: No - PSYCHIATRIC Hx Anxiety: Yes Hx Depression: Yes - SURGICAL HISTORY Hx Surgeries: No - ANESTHESIA Hx Anesthesia: No Meds Allergies/Adverse Reactions: Allergies Allergy/AdvReac Type Severity Reaction Status Date / Time basil Allergy ANAPHYLAXIS Verified 09/21/17 01:27 raspberry Allergy RASH Verified 09/21/17 02:00 shellfish derived Allergy ANAPHYLAXIS Verified 09/21/17 01:27 - Medications Medications: Current Medications Aspirin (Ecotrin) 81 mg PO DAILY [facility] Last Admin: 09/21/17 09:15 Dose: 81 mg Atorvastatin Calcium (Lipitor) 20 mg PO DAILY [facility] Last Admin: 09/21/17 09:08 Dose: 20 mg Enoxaparin Sodium (Lovenox) 110 mg SC Q12H [facility] PRN Reason: Protocol Last Admin: 09/21/17 06:09 Dose: 110 mg Metoprolol Tartrate (Lopressor) 25 mg PO Q12 [facility] Results - Vital Signs Recent Vital Signs: Last Vital Signs Temp 98.9 F 09/21/17 08:20 Pulse 90 09/21/17 09:16 Resp 18 09/21/17 08:20 BP 161/102 H 09/21/17 09:16 Pulse Ox 97 09/21/17 08:20 - Labs Result Diagrams: 09/21/17 01:50 09/21/17 03:04 Labs: Laboratory Results - last 24 hr 09/21/17 09/21/17 09/21/17 01:50 01:50 01:50 WBC 7.6 RBC 4.78 Hgb 14.6 Hct 44.1 MCV 92.3 D MCH 30.5 MCHC 33.0 RDW 14.7 H Plt Count 263 MPV 7.9 Neut % (Auto) 72.8 Lymph % (Auto) 15.3 L [place] % (Auto) 10.1 H Eos % (Auto) 1.5 Baso % (Auto) 0.3 Neut # 5.5 Lymph # 1.2 [place] # 0.8 Eos # 0.1 Baso # 0.0 PT 11.9 INR 1.1 APTT 31.4 Sodium Potassium Chloride Carbon Dioxide Anion Gap BUN Creatinine Est GFR ( Amer) Est GFR (Non-Af Amer) Random Glucose Calcium Total Bilirubin Direct Bilirubin AST ALT Alkaline Phosphatase Troponin I NT-Pro-B Natriuret Pep Total Protein Albumin Globulin Albumin/Globulin Ratio Triglycerides Cholesterol LDL Cholesterol Direct HDL Cholesterol TSH 3rd Generation Urine Color Urine Clarity Urine pH Ur Specific [place] Urine Protein Urine Glucose (UA) Urine Ketones Urine Blood Urine Nitrate Urine Bilirubin Urine Urobilinogen Ur Leukocyte Esterase Urine RBC (Auto) Urine Microscopic WBC Urine Bacteria Blood Type AB POSITIVE Antibody Screen Negative BBK History Checked Patient has bt 09/21/17 09/21/17 09/21/17 03:00 03:04 06:00 WBC RBC Hgb Hct MCV MCH MCHC RDW Plt Count MPV Neut % (Auto) Lymph % (Auto) [place] % (Auto) Eos % (Auto) Baso % (Auto) Neut # Lymph # [place] # Eos # Baso # PT INR APTT Sodium 144 Potassium 3.7 Chloride 106 Carbon Dioxide 25 Anion Gap 17 BUN 11 Creatinine 0.7 L Est GFR ( Amer) > 60 Est GFR (Non-Af Amer) > 60 Random Glucose 117 H Calcium 9.4 Total Bilirubin Direct Bilirubin AST ALT Alkaline Phosphatase Troponin I 0.0180 NT-Pro-B Natriuret Pep 529 Total Protein Albumin Globulin Albumin/Globulin Ratio Triglycerides 51 Cholesterol 126 LDL Cholesterol Direct 71 HDL Cholesterol 38 TSH 3rd Generation Urine Color Straw Urine Clarity Clear Urine pH 7.0 Ur Specific [place] < 1.005 Urine Protein Negative Urine Glucose (UA) Neg Urine Ketones Negative Urine Blood Small Urine Nitrate Negative Urine Bilirubin Negative Urine Urobilinogen 0.2-1.0 Ur Leukocyte Esterase Neg Urine RBC (Auto) < 1 Urine Microscopic WBC < 1 Urine Bacteria Rare Blood Type Antibody Screen BBK History Checked 09/21/17 06:00 WBC RBC Hgb Hct MCV MCH MCHC RDW Plt Count MPV Neut % (Auto) Lymph % (Auto) [place] % (Auto) Eos % (Auto) Baso % (Auto) Neut # Lymph # [place] # Eos # Baso # PT INR APTT Sodium Potassium Chloride Carbon Dioxide Anion Gap BUN Creatinine Est GFR ( Amer) Est GFR (Non-Af Amer) Random Glucose Calcium Total Bilirubin 0.4 Direct Bilirubin 0.2 AST 30 ALT 34 Alkaline Phosphatase 59 Troponin I NT-Pro-B Natriuret Pep Total Protein 7.3 Albumin 3.6 Globulin 3.7 Albumin/Globulin Ratio 1.0 Triglycerides Cholesterol LDL Cholesterol Direct HDL Cholesterol TSH 3rd Generation 1.10 Urine Color Urine Clarity Urine pH Ur Specific [place] Urine Protein Urine Glucose (UA) Urine Ketones Urine Blood Urine Nitrate Urine Bilirubin Urine Urobilinogen Ur Leukocyte Esterase Urine RBC (Auto) Urine Microscopic WBC Urine Bacteria Blood Type Antibody Screen BBK History Checked
--- NOTE | 2017-09-21 12:21 | CARD ---
APPROVED REPORT EKG Measurement Heart [id number] <Conclusion> Atrial fibrillation with rapid ventricular response Nonspecific ST and T wave abnormality Abnormal ECG
--- NOTE | 2017-09-21 12:58 | RAD ---
PROCEDURE: CHEST RADIOGRAPH, 1 VIEW HISTORY: afib COMPARISON: None available. FINDINGS: LUNGS: Clear. PLEURA: No pneumothorax or pleural fluid seen. CARDIOVASCULAR: Cardiomegaly. . OSSEOUS STRUCTURES: No significant abnormalities. VISUALIZED UPPER ABDOMEN: Normal. OTHER FINDINGS: None. IMPRESSION: No active disease.
[2017-09-21] MEDS ORDERED: Magnesium Sulfate 2 gm/50 ml 2 GM/50 ML BAG IV ONE (14:45)
[2017-09-22 06:10] VITALS: RESP 18
[2017-09-22] MEDS: Enoxaparin 120 mg Syringe SC SCH (07:00)
[2017-09-22 07:20] LABS: HEMATOCRIT 39.1 % (35.0-51.0); MEAN CELL VOLUME 91.3 fl (80.0-94.0); MEAN CORPUSCULAR HEMOGLOBIN 30.3 pg (27.0-31.0); MEAN CORPUSCULAR HGB CONC 33.2 g/dL (33.0-37.0); RED CELL DISTRIBUTION WIDTH 14.3 % (11.5-14.5); WHITE BLOOD COUNT 5.5 K/uL (4.8-10.8)
[2017-09-22 07:50] LABS: BLOOD UREA NITROGEN 10 mg/dl (9-20); CALCIUM 9.2 mg/dL (8.4-10.2); CARBON DIOXIDE 28 mmol/L (22-30); CHLORIDE 105 mmol/L (98-107); GFR AFRICAN-AMERICAN > 60; GLUCOSE,RANDOM 103 mg/dL (75-110); POTASSIUM 3.6 MMOL/L (3.6-5.0); SODIUM 142 mmol/l (132-148)
--- NOTE | 2017-09-22 07:56 | CP.PCM.DIS ---
Provider - Provider Date of Admission: 09/21/17 03:41 Attending physician: Jasbir Quiroz Primary care physician: None Consults: cardiology neurology Psychiatry consult Time Spent in preparation of Discharge (in minutes): 20 Hospital Course - Lab Results Lab Results: Most Recent Lab Values WBC 7.6 K/uL (4.8-10.8) 09/21/17 01:50 RBC 4.78 Mil/uL (4.40-5.90) 09/21/17 01:50 Hgb 14.6 g/dL (12.0-18.0) 09/21/17 01:50 Hct 44.1 % (35.0-51.0) 09/21/17 01:50 MCV 92.3 fl (80.0-94.0) D 09/21/17 01:50 MCH 30.5 pg (27.0-31.0) 09/21/17 01:50 MCHC 33.0 g/dL (33.0-37.0) 09/21/17 01:50 RDW 14.7 % (11.5-14.5) H 09/21/17 01:50 Plt Count 263 K/uL (130-400) 09/21/17 01:50 MPV 7.9 fl (7.2-11.7) 09/21/17 01:50 Neut % (Auto) 72.8 % (50.0-75.0) 09/21/17 01:50 Lymph % (Auto) 15.3 % (20.0-40.0) L 09/21/17 01:50 [place] % (Auto) 10.1 % (0.0-10.0) H 09/21/17 01:50 Eos % (Auto) 1.5 % (0.0-4.0) 09/21/17 01:50 Baso % (Auto) 0.3 % (0.0-2.0) 09/21/17 01:50 Neut # 5.5 K/uL (1.8-7.0) 09/21/17 01:50 Lymph # 1.2 K/uL (1.0-4.3) 09/21/17 01:50 [place] # 0.8 K/uL (0.0-0.8) 09/21/17 01:50 Eos # 0.1 K/uL (0.0-0.7) 09/21/17 01:50 Baso # 0.0 K/uL (0.0-0.2) 09/21/17 01:50 PT 12.8 Seconds (9.8-13.1) 09/22/17 06:00 INR 1.1 (0.9-1.2) 09/22/17 06:00 APTT 31.4 Seconds (25.6-37.1) 09/21/17 01:50 Sodium 144 mmol/l (132-148) 09/21/17 03:04 Potassium 3.7 MMOL/L (3.6-5.0) 09/21/17 03:04 Chloride 106 mmol/L (98-107) 09/21/17 03:04 Carbon Dioxide 25 mmol/L (22-30) 09/21/17 03:04 Anion Gap 17 (10-20) 09/21/17 03:04 BUN 11 mg/dl (9-20) 09/21/17 03:04 Creatinine 0.7 mg/dL (0.8-1.5) L 09/21/17 03:04 Est GFR ( Amer) > 60 09/21/17 03:04 Est GFR (Non-Af Amer) > 60 09/21/17 03:04 POC Glucose (mg/dL) 102 mg/dL (65-110) 09/21/17 21:11 Random Glucose 117 mg/dL (75-110) H 09/21/17 03:04 Calcium 9.4 mg/dL (8.4-10.2) 09/21/17 03:04 Total Bilirubin 0.4 mg/dl (0.2-1.3) 09/21/17 06:00 Direct Bilirubin 0.2 mg/ml (0.0-0.4) 09/21/17 06:00 AST 30 U/L (17-59) 09/21/17 06:00 ALT 34 U/L (21-72) 09/21/17 06:00 Alkaline Phosphatase 59 U/L (38-126) 09/21/17 06:00 Troponin I 0.0180 ng/mL (0.00-0.120) 09/21/17 03:04 NT-Pro-B Natriuret Pep 529 pg/ml (0-900) 09/21/17 03:04 Total Protein 7.3 G/DL (6.3-8.2) 09/21/17 06:00 Albumin 3.6 g/dL (3.5-5.0) 09/21/17 06:00 Globulin 3.7 gm/dL (2.2-3.9) 09/21/17 06:00 Albumin/Globulin Ratio 1.0 (1.0-2.1) 09/21/17 06:00 Triglycerides 51 mg/DL (0-149) 09/21/17 06:00 Cholesterol 126 mg/dL (0-199) 09/21/17 06:00 LDL Cholesterol Direct 71 mg/dL (0-129) 09/21/17 06:00 HDL Cholesterol 38 MG/DL (30-70) 09/21/17 06:00 TSH 3rd Generation 1.10 mIU/ML (0.46-4.68) 09/21/17 06:00 Urine Color Straw (YELLOW) 09/21/17 03:00 Urine Clarity Clear (Clear) 09/21/17 03:00 Urine pH 7.0 (5.0-8.0) 09/21/17 03:00 Ur Specific [place] < 1.005 (1.003-1.030) 09/21/17 03:00 Urine Protein Negative mg/dL (NEGATIVE) 09/21/17 03:00 Urine Glucose (UA) Neg mg/dL (Normal) 09/21/17 03:00 Urine Ketones Negative mg/dL (NEGATIVE) 09/21/17 03:00 Urine Blood Small (NEGATIVE) 09/21/17 03:00 Urine Nitrate Negative (NEGATIVE) 09/21/17 03:00 Urine Bilirubin Negative (NEGATIVE) 09/21/17 03:00 Urine Urobilinogen 0.2-1.0 mg/dL (0.2-1.0) 09/21/17 03:00 Ur Leukocyte Esterase Neg Matthew/uL (Negative) 09/21/17 03:00 Urine RBC (Auto) < 1 /hpf (0-3) 09/21/17 03:00 Urine Microscopic WBC < 1 /hpf (0-5) 09/21/17 03:00 Urine Bacteria Rare (<OCC) 09/21/17 03:00 Blood Type AB POSITIVE 09/21/17 01:50 Antibody Screen Negative 09/21/17 01:50 BBK History Checked Patient has bt 09/21/17 01:50 - Hospital Course Hospital Course: 62 years old male with hx of Chronic left lower extremity lymphedema, HTN, CHF, A Fib not on anticoagulant, non compliant with medications, obese,not following with any physician ,came in with sudden unset of palpitations, associated with numbness and pins and needle like sensation to the entire left side of the body. With 2 minutes of complete weakness to the left upper and lower extremities. The symptoms resolved before he arrived to the ED. In the ED he was found to be in Rapid A Fib and cardizem was given. CT head showed no acute pathology. Patient admitted in telemetry for Afib with RVR and TIA.Neurology, cardiology, podiatry and psychiatry were consulted . He was started on Metoprolol 25 mg po BID for rate control, lovenox therapeutic for anticoagulation, Asa and Statin Patient remained neurologically intact Patient refused MRI and MRA head and neck due to claustrophobia. His trop x 3 were negative ruling out any ischemic event. Echo showed EF 45-50 % with global hypokinesis.carotid doppler shoed no significant stenosis. He was started also on lisinopril 5 mg po daily for BP control Patient was educated and counselled on compliance with medications like antihypertensives and anticoagulation to decrease his risk of stoke or cardiac events. Patient expressed understanding . Advised on diet, weight loss and exercise. He was started on eliquist Po for anticoagulation as outpatient and recommended to follow up with [facility] in 1 week he will need stress test as outpatient 1. TIA no neuro defficits started on Atorvastatin, antihypertensives ( lisinopril and metoprolol) ASA and eliquist carotid doppler showed no stenosis echo showed global hypokinesis and EF 45-50 % neuro was consulted 2. A Fib with rapid response now rate controlled cardiology Dr Alvarado consulted Continue Metoprolol 25 mg po bid Started on Eliquist for anticoagulation for discharge 3.CHF , systolic dysfunction, stable Started Lisinopril, metoprolol EF 45-50 % 4. HTN uncontrolled started Lisinopril and Metoprolol 5.Chronic left Leg Lymphedema no DVt podiatry consulted can follow up as outpatient with podiatry clinic 6. Anxiety with Depression Psychiatry consulted Dr Melara no emergency intervention can follow up with mental [facility] as outpatient 7.Obesity counselled on diet and exercise Discharge Exam - Head Exam Head Exam: ATRAUMATIC, NORMAL INSPECTION, NORMOCEPHALIC Additional comments: obese - Eye Exam Eye Exam: EOMI, Normal appearance, PERRL Pupil Exam: NORMAL ACCOMODATION - ENT Exam ENT Exam: Mucous Membranes Moist, Normal Exam - Neck Exam Neck exam: Full Rom, Normal Inspection - Respiratory Exam Respiratory Exam: Clear to PA & Lateral, NORMAL BREATHING PATTERN. absent: Rhonchi, Wheezes, Respiratory Distress - Cardiovascular Exam Cardiovascular Exam: Irregular Rhythm, +S1, +S2. absent: JVD - GI/Abdominal Exam GI & Abdominal Exam: Normal Bowel Sounds, Soft. absent: Distended, Guarding, Rebound, Tenderness - Rectal Exam Rectal Exam: Deferred - Extremities Exam Additional comments: left leg lymphedema - Neurological Exam Neurological exam: Alert, CN II-XII Intact, Oriented x3 - Psychiatric Exam Psychiatric exam: Normal Affect - Skin Skin Exam: Dry, Warm Discharge Plan - Discharge Medications Prescriptions: Apixaban [Eliquis] 5 mg PO BID #60 tablet Aspirin [Ecotrin] 81 mg PO DAILY #30 tabec Atorvastatin [Lipitor] 20 mg PO DAILY #30 tab Lisinopril [Zestril] 10 mg PO DAILY #30 tab Metoprolol Tartrate [Lopressor] 25 mg PO Q12 #60 tab - Follow Up Plan Condition: STABLE Disposition: HOME/ ROUTINE Patient education suggested?: Yes Instructions: Transient Ischemic Attack (DC) Referrals: [facility] [place] [Outside]
--- NOTE | 2017-09-22 10:55 | CARD ---
APPROVED REPORT EXAM: Two-dimensional and M-mode echocardiogram with Doppler and color Doppler. Other Information Quality : GoodRhythm : Atrial Fibrillation INDICATION Atrial Fibrillation 2D DIMENSIONS IVSd1.53 (0.7-1.1cm)LVDd5.33 (3.9-5.9cm) LVOT Diameter2.35 (1.8-2.4cm)PWd1.06 (0.7-1.1cm) IVSs1.94 (0.8-1.2cm)LVDs4.87 (2.5-4.0cm) FS (%) 8.6 %PWs0.98 (0.8-1.2cm) M-Mode DIMENSIONS Left Atrium (MM)6.67 (2.5-4.0cm)IVSd1.18 (0.7-1.1cm) Aortic Root3.97 (2.2-3.7cm)LVDd5.91 (4.0-5.6cm) Aortic Cusp Exc.2.28 (1.5-2.0cm)PWd1.44 (0.7-1.1cm) IVSs1.48 cmFS (%) 23 % LVDs4.56 (2.0-3.8cm)PWs1.60 cm Aortic Valve AI P 1/2 [id number] Mitral Valve E/A ratio0.0 TDI E/Lateral E'0.0E/Medial E'0.0 Pulmonary Valve PV Peak [id number]/s Tricuspid Valve TR Peak [id number]/sRAP [id number] Peak Gr.22mmHg [id number] LEFT VENTRICLE The left ventricle is normal size. There is normal left ventricular wall thickness. The systolic function is mildly impaired. The Ejection Fraction is 45-50%. There is global hypokinesis of the left ventricle. The left ventricular diastolic function is normal. No left ventricle thrombus noted on this study. There is no mass noted in the left ventricle. RIGHT VENTRICLE The right ventricle is normal size. There is normal right ventricular wall thickness. The right ventricular systolic function is normal. ATRIA The left atrium size is normal. The right atrium size is normal. The interatrial septum is intact with no evidence for an atrial septal defect. AORTIC VALVE The aortic valve is normal in structure and function. There is mild aortic regurgitation. There is no aortic valvular stenosis. There is no aortic valvular vegetation. MITRAL VALVE The mitral valve is normal in structure and function. There is no evidence of mitral valve prolapse. There is no mitral valve stenosis. Mitral regurgitation is mild. TRICUSPID VALVE The tricuspid valve is normal in structure and function. There is no tricuspid valve regurgitation noted. There is no tricuspid valve prolapse or vegetation. There is no tricuspid valve stenosis. PULMONIC VALVE The pulmonary valve is normal in structure and function. There is no pulmonic valvular regurgitation. There is no pulmonic valvular stenosis. GREAT VESSELS The aortic root is normal in size. The IVC is normal in size and collapses >50% with inspiration. PERICARDIAL EFFUSION The pericardium appears normal. There is no pleural effusion. <Conclusion> The left ventricle is normal size. The systolic function is mildly impaired. The Ejection Fraction is 45-50%. There is global hypokinesis of the left ventricle. There is mild aortic regurgitation. Mitral regurgitation is mild.
[2017-09-22 12:26] VITALS: BP 149/95; PULSE 77; TEMP 98.2; O2SAT 98
--- NOTE | 2017-09-22 13:35 | CP.PCM.CON ---
History of Present Illness - History of Present Illness History of Present Illness: CONSULT WAS DONE ON 09-21-17 AT 3 PM PT HAS A HX OF AFIB. STOPPED MEDICATIONS ON HIS OWN MANY YEARS AGO. NOW PRESENTS WITH TIA LIKE SX AND AFIB. NO HX OF BLEEDING. CT SHOWS NO BLEED. PER SISTERS AT BEDSIDE PT IS VERY NONCOMPLIANT. NO CURRENT NEURO SX. ON LOVENOX ANTICOAG. Past Patient History - Past Medical History & Family History Past Medical History?: Yes - Past Social History Smoking Status: Never Smoked Chewing Tobacco Use: No Cigar Use: No Alcohol: None Drugs: Denies Home Situation {Lives}: With Family - CARDIAC Hx Atrial Fibrillation: Yes Hx Congestive Heart Failure: Yes - PULMONARY Hx Emphysema: No - NEUROLOGICAL Hx Neurological Disorder: No - HEENT Hx HEENT Problems: No - RENAL Hx Chronic Kidney Disease: No - ENDOCRINE/METABOLIC Hx Diabetes Mellitus Type 2: Yes (possibly) - HEMATOLOGICAL/ONCOLOGICAL Hx Blood Disorders: No - INTEGUMENTARY Hx Dermatological Problems: No - MUSCULOSKELETAL/RHEUMATOLOGICAL Hx Musculoskeletal Disorders: Yes Other/Comment: left leg lymphedema - GASTROINTESTINAL Hx Gastrointestinal Disorders: No - GENITOURINARY/GYNECOLOGICAL Hx Genitourinary Disorders: No - PSYCHIATRIC Hx Anxiety: Yes Hx Depression: Yes - SURGICAL HISTORY Hx Surgeries: No - ANESTHESIA Hx Anesthesia: No Meds Home Medications: Home Medication List Medication Instructions Recorded Confirmed Type Apixaban [Eliquis] 5 mg PO BID #60 tablet 09/22/17 Rx Aspirin [Ecotrin] 81 mg PO DAILY #30 tabec 09/22/17 Rx Atorvastatin [Lipitor] 20 mg PO DAILY #30 tab 09/22/17 Rx Lisinopril [Zestril] 10 mg PO DAILY #30 tab 09/22/17 Rx Metoprolol Tartrate [Lopressor] 25 mg PO Q12 #60 tab 09/22/17 Rx Allergies/Adverse Reactions: Allergies Allergy/AdvReac Type Severity Reaction Status Date / Time basil Allergy ANAPHYLAXIS Verified 09/21/17 01:27 raspberry Allergy RASH Verified 09/21/17 02:00 shellfish derived Allergy ANAPHYLAXIS Verified 09/21/17 01:27 - Medications Medications: Current Medications Aspirin (Ecotrin) 81 mg PO DAILY [facility] Last Admin: 09/22/17 09:23 Dose: 81 mg Atorvastatin Calcium (Lipitor) 20 mg PO DAILY [facility] Last Admin: 09/22/17 09:23 Dose: 20 mg Enoxaparin Sodium (Lovenox) 110 mg SC Q12H [facility] PRN Reason: Protocol Last Admin: 09/22/17 07:00 Dose: 110 mg Lisinopril (Zestril) 10 mg PO DAILY [facility] Metoprolol Tartrate (Lopressor) 25 mg PO Q12 [facility] Last Admin: 09/22/17 09:23 Dose: 25 mg Results - Vital Signs Recent Vital Signs: Last Vital Signs Temp 98.2 F 09/22/17 12:26 Pulse 77 09/22/17 12:26 Resp 18 09/22/17 12:26 BP 149/95 H 09/22/17 12:26 Pulse Ox 98 09/22/17 12:26 - Labs Result Diagrams: 09/22/17 07:20 09/22/17 06:00 Labs: Laboratory Results - last 24 hr 09/21/17 09/21/17 09/22/17 16:28 21:11 04:51 WBC RBC Hgb Hct MCV MCH MCHC RDW Plt Count PT INR Sodium Potassium Chloride Carbon Dioxide Anion Gap BUN Creatinine Est GFR ( Amer) Est GFR (Non-Af Amer) POC Glucose (mg/dL) 121 H 102 101 Random Glucose Calcium 09/22/17 09/22/17 09/22/17 06:00 06:00 07:20 WBC 5.5 RBC 4.28 L Hgb 13.0 Hct 39.1 MCV 91.3 MCH 30.3 MCHC 33.2 RDW 14.3 Plt Count 230 PT 12.8 INR 1.1 Sodium 142 Potassium 3.6 Chloride 105 Carbon Dioxide 28 Anion Gap 13 BUN 10 Creatinine 0.7 L Est GFR ( Amer) > 60 Est GFR (Non-Af Amer) > 60 POC Glucose (mg/dL) Random Glucose 103 Calcium 9.2 Assessment & Plan (1) Atrial fibrillation Status: Acute (2) TIA (transient ischemic attack) Status: Acute (3) Acquired lymphedema of lower extremity Status: Acute - Assessment and Plan (Free Text) Plan: afib on monitor rate controlled HR 91 Patient does not follow up with any physicians and not take any medications for his BP or afib,used to be on coumadin years ago but stopped taking it Started on metoprolol tartrate 25 mg po BId for rate control and Bp control ECHO PENDING PT SHOULD GET ELIQUIS IF ELIGIBLE HE IS LIKELY TO NOT FU OUTPT, THUS COUMADIN MAY BE A RISKY OPTION 60 MIN
--- NOTE | 2017-09-22 13:44 | CP.PCM.PN ---
Subjective - Date & Time of Evaluation Date of Evaluation: 09/22/17 Time of Evaluation: 13:44 Objective - Vital Signs/Intake and Output Vital Signs (last 24 hours): Temp Pulse Resp BP Pulse Ox 98.2 F 77 18 149/95 H 98 09/22/17 12:26 09/22/17 12:26 09/22/17 12:26 09/22/17 12:26 09/22/17 12:26 - Medications Medications: Current Medications Aspirin (Ecotrin) 81 mg PO DAILY [facility] Last Admin: 09/22/17 09:23 Dose: 81 mg Atorvastatin Calcium (Lipitor) 20 mg PO DAILY [facility] Last Admin: 09/22/17 09:23 Dose: 20 mg Enoxaparin Sodium (Lovenox) 110 mg SC Q12H [facility] PRN Reason: Protocol Last Admin: 09/22/17 07:00 Dose: 110 mg Metoprolol Tartrate (Lopressor) 25 mg PO Q6 [facility] Ramipril (Altace) 5 mg PO DAILY [facility] - Labs Labs: 09/22/17 07:20 09/22/17 06:00 PT 12.8 Seconds (9.8-13.1) 09/22/17 06:00 INR 1.1 (0.9-1.2) 09/22/17 06:00 APTT 31.4 Seconds (25.6-37.1) 09/21/17 01:50 Assessment and Plan (1) Atrial fibrillation Status: Acute (2) TIA (transient ischemic attack) Status: Acute (3) Acquired lymphedema of lower extremity Status: Acute
--- NOTE | 2017-09-22 14:17 | CON ---
NEUROLOGY CONSULTATION REPORT REASON FOR CONSULTATION: TIA. HISTORY OF PRESENT ILLNESS: The patient is a 62-year-old male who came to the emergency room with complaints of numbness and tingling sensation in his left side of the body. He also had some weakness in the left arm for 2 minutes. Because of his symptoms, he decided to come to the emergency room. In the emergency room, his weakness resolved and his NIH Stroke Scale was 0. The patient has history of chronic lymphedema in the left lower extremity. Denies any other complaints. The patient has history of atrial fibrillation, was on Coumadin in the past; however, he stopped taking it. PAST MEDICAL HISTORY: Includes anxiety, depression, atrial fibrillation, diabetes mellitus, hypertension, congestive heart failure and left leg lymphedema with ulceration. REVIEW OF SYSTEMS: Denies any headache, dizziness, chest pain, shortness of breath, abdominal pain, constipation, diarrhea, dysuria, cough or sputum production. MEDICATIONS AT HOME: Included none. ALLERGIES: NO KNOWN DRUG ALLERGIES, BUT HE IS ALLERGIC TO SHELLFISH. SOCIAL HISTORY: He denies smoking, use of alcohol or illicit drugs. FAMILY HISTORY: Noncontributory to the case. PHYSICAL EXAMINATION: GENERAL: The patient is a middle-aged male, lying on the bed, in no acute distress. VITAL SIGNS: His blood pressure is 161/115, heart rate is 89 per minute, breathing at a rate of 16 per minute, temperature is 98.2 degrees Fahrenheit. HEENT: Head is normocephalic and atraumatic. NECK: Supple. There are no carotid bruits. LUNGS: Clear. CARDIOVASCULAR: S1 and S2 audible. No murmurs. ABDOMEN: Soft and nontender. Bowel sounds are present. NEUROLOGIC: Mental status: The patient is awake, alert and oriented to time, place and person. His speech is fluent. Naming and repetition is normal. Memory and cognition are intact. Cranial nerve examination: Pupils are 3 mm bilaterally, reactive to light. Visual casey are full. Extraocular movements are intact. There is no fascial asymmetry. Palate is upgoing bilaterally and tongue is midline. Motor exam: Tone is normal, power is 5/5 bilaterally in all extremities. Positive lymphedema noted in the left lower extremity. Gait is narrow based. Cerebellar examination: [id number] shows no dysmetria. Sensory examination is intact to soft touch and pinprick. LABORATORY DATA: Reviewed, shows WBC of 7.6, hemoglobin 14.6, hematocrit 44.1 and platelets of 263. Sodium is 144, potassium 3.7, chloride 106, carbon dioxide 25, BUN of 11, creatinine 0.7 and glucose of 117. He had a CT scan of the head done, which shows nonspecific white matter changes, no acute infarct seen. IMPRESSION: 1. Transient ischemic attack, status post numbness and slight weakness on the left side. 2. Atrial fibrillation. RECOMMENDATIONS: 1. The patient to have MRI of the brain; however, the patient is very claustrophobic and does not want to have any MRI done at the present. 2. The patient to have a carotid Doppler study. 3. The patient had an echocardiogram done, please follow up the report. 4. The patient's blood pressure is to be better controlled. 5. Currently, the patient is on aspirin and statin. Consider starting the patient on chronic anticoagulation because of his underlying atrial fibrillation. 6. If carotid Doppler does not show any significant stenosis, then he may be discharged with outpatient followup. 7. No further neurological recommendations. Please call neurology on an as-needed basis. Thank you for the opportunity to participate in the care of this patient. Kaitlin Durham MD
--- NOTE | 2017-09-23 11:57 | US ---
PROCEDURE: Duplex ultrasound of the carotid and vertebral arteries. HISTORY: TIA COMPARISON: 10/16/2007 TECHNIQUE: Grayscale and duplex Doppler evaluation of the cervical carotid and vertebral arteries were performed. The common carotid, carotid bifurcations and cervical ICA and proximal ECA were evaluated. The vertebral arteries were evaluated for gross patency and direction. FINDINGS: RIGHT CAROTID ARTERIES: Common Carotid Artery: Normal. Maximal flow velocity of 137.80 cm/s. Carotid Bifurcation: Normal. Internal Carotid Artery:Heterogeneous plaque formation. Maximal flow velocity of 84.7 cm/s. External Carotid Artery (proximal branches): Normal. Maximal flow velocity of 128.5 cm/s. ICA/CCA Ratio: 1.3 LEFT CAROTID ARTERIES: Common Carotid Artery: Normal. Maximal flow velocity of 181.9 cm/s. Carotid Bifurcation: Normal. Internal Carotid Artery:Heterogeneous plaque formation.tortuous ICA Maximal flow velocity of 126.3 cm/s. External Carotid Artery (proximal branches): Normal. Maximal flow velocity of 160.8 cm/s. ICA/CCA Ratio: 1.3 VERTEBRAL ARTERIES: Right Vertebral Artery: Patent. Antegrade flow. Left Vertebral Artery: Patent. Antegrade flow. OTHER FINDINGS: None. IMPRESSION: Right ICA degree of stenosis: Less than 50% Left ICA degree of stenosis: 50-69 5 % this represents change from the prior study 2006 at which time it ICA stenosis less than 50%. Reference Internal Carotid Artery (ICA) Peak Systolic Velocity (PSV) for above: 1. Less than 50% stenosis less than 125 cm/s peak systolic velocity 2. 50-69% stenosis 125-230cm/s peak systolic velocity 3. Greater than 70% but less than near occlusion greater than 230 cm/s peak systolic velocity
== END 2017-09-22 14:50 | disposition home or self-care (01) | DRG 532 ==
LOC: H.ER 00:59 → H.ERHOLD 03:41 → H.TEL 05:02
PROVIDERS: ADMIT Internal Medicine; ATTEND Internal Medicine
PROC: 3E0234Z Introduction of Serum, Toxoid and Vaccine into Muscle, Percutaneous Approach (ICD-10-PCS; principal; 2017-09-21)
DX: G45.9 Transient cerebral ischemic attack, unspecified (principal); I50.20 Unspecified systolic (congestive) heart failure; I11.0 Hypertensive heart disease with heart failure; L97.929 Non-pressure chronic ulcer of unspecified part of left lower leg with unspecified severity; I89.0 Lymphedema, not elsewhere classified; I48.91 Unspecified atrial fibrillation; E11.9 Type 2 diabetes mellitus without complications; E66.9 Obesity, unspecified; F41.8 Other specified anxiety disorders; F40.240 Claustrophobia; Z23 Encounter for immunization; Z91.19 Patient's noncompliance with other medical treatment and regimen; Z79.01 Long term (current) use of anticoagulants; Z79.82 Long term (current) use of aspirin; Z91.013 Allergy to seafood

== ENCOUNTER 2018-01-05 15:20 | Inpatient (IN) | payer SELFPAY ==
[2018-01-05 15:20] VITALS: BMI 44.3
--- NOTE | 2018-01-05 16:28 | ED PDOC ---
Syncope/Near Syncope/Dizziness Time Seen by Provider: 01/05/18 15:59 Chief Complaint (Nursing): Palpitations Chief Complaint (Provider): Syncope History Per: Patient History/Exam Limitations: no limitations Onset/Duration Of Symptoms: Hrs Current Symptoms Are (Timing): Gone Now Additional Complaint(s): Parth Christina is a 62 year old male with a history of atrial fibrillation and hypertension that presents to the ED with a chief complaint of a syncopal episode that occurred today. Patient states that he does not know when this episode occurred, but that his sister found him on the floor at 1 PM. He states that prior to the episode, he had experienced from chest pain, shortness of breath, palpitations, ticking of his left hand, and extremely transient stiffness of his left arm; now while in ED he has no complaints. Patient additionally states that he has experienced all of these symptoms before. He denies any tongue biting, incontinence, headaches, paresthesias, or weakness. Of Note: Patient states that he was discharged from the hospital in September 2017 and never followed up. He also reports that he ran out of his Metoprolol, Eliquis, and Lisinopril. NIHSS Stroke Scale - Date/Time Evaluation Performed Date Performed: 01/05/18 Time Performed: 15:35 When Was NIHSS Performed: Baseline - How Severe is the Stroke Level of Consciousness: 0=Alert LOC to Questions: 0=Both comments correct LOC to commands: 0=Obeys both correctly Best Gaze: 0=Normal Visual: 0=No visual loss Facial: 0=Normal Motor Arm - Left: 0=No drift Motor Arm - Right: 0=No drift Motor Leg - Left: 0=No drift Motor Leg - Right: 0=No drift Limb Ataxia: 0=Absent Sensory: 0=Normal Best Language: 0=No aphasia Dysarthia: 0=Normal articulation Extinction & Inattention (Neglect): 0=Normal, no object Score: 0 Past Medical History Reviewed: Historical Data, Nursing Documentation, Vital Signs Vital Signs: Last Vital Signs Temp 98.1 F 01/05/18 15:22 Pulse 85 01/05/18 15:22 Resp 20 01/05/18 15:22 BP 173/103 H 01/05/18 15:22 Pulse Ox 100 01/05/18 15:22 - Medical History PMH: Anxiety, Atrial Fibrillation, CHF, Depression Denies: Diabetes, Emphysema, Hepatitis, HIV, HTN, Chronic Kidney Disease, Seizures, Sexually Transmitted Disease - Family History Family History: States: Unknown Family Hx - Social History Current smoker - smoking cessation education provided: No Alcohol: None - Immunization History Hx Tetanus Toxoid Vaccination: No Hx Influenza Vaccination: No Hx Pneumococcal Vaccination: No - Home Medications Home Medications: Ambulatory Orders Medication Instructions Recorded Aspirin [Ecotrin] 81 mg PO DAILY #30 tabec 01/07/18 Atorvastatin [Lipitor] 20 mg PO HS #30 tab 01/07/18 Lisinopril [Zestril] 10 mg PO DAILY #30 tab 01/07/18 Metoprolol Tartrate 50 mg PO TID 4 Days #12 tablet 01/07/18 - Allergies Allergies/Adverse Reactions: Allergies Allergy/AdvReac Type Severity Reaction Status Date / Time basil Allergy ANAPHYLAXIS Verified 09/21/17 01:27 raspberry Allergy RASH Verified 09/21/17 02:00 shellfish derived Allergy ANAPHYLAXIS Verified 09/21/17 01:27 Review of Systems Constitutional: Positive for: Other (LOC) Cardiovascular: Positive for: Chest Pain, Palpitations Respiratory: Positive for: Shortness of Breath Neurological: Positive for: Other (tickling of his left hand) Physical Exam - Reviewed Nursing Documentation Reviewed: Yes Vital Signs Reviewed: Yes - Physical Exam Appears: Positive for: Non-toxic, No Acute Distress Head Exam: Positive for: ATRAUMATIC, NORMOCEPHALIC Skin: Positive for: Normal Color, Warm Eye Exam: Positive for: Normal appearance, EOMI, PERRL Neck: Positive for: Normal, Supple Cardiovascular/Chest: Positive for: Regular Rate, Rhythm. Negative for: Murmur Respiratory: Positive for: Normal Breath Sounds. Negative for: Wheezing Gastrointestinal/Abdominal: Positive for: Normal Exam, Soft. Negative for: Tenderness Back: Positive for: Normal Inspection. Negative for: L CVA Tenderness, R CVA Tenderness Extremity: Positive for: Normal ROM, Swelling (Left lower extremity appears to have chronic appearing elephantitis, possibly lymph edema) Neurologic/Psych: Positive for: Alert, thread weaver II-XII (normal), Oriented, Cerebellar Tests (normal), Gait (steady). Negative for: Motor/Sensory Deficits , Aphasia, Facial Droop - Laboratory Results Result Diagrams: 01/05/18 16:25 01/05/18 16:25 - ECG O2 Sat by Pulse Oximetry: 100 (RA) Pulse Ox Interpretation: Normal Medical Decision Making Medical Decision Making: Impression: Syncopal Episode Plan: * CT Head w/o Contrast * Chest X-Ray * EKG * CMP * CBC * PTT * PT * D-Dimer * Troponin I * Urine dip * Urinalysis * Reevaluation Chest X-Ray FINDINGS: LUNGS: Prominence of pulmonary vasculature may be secondary to technique and/or pulmonary vascular congestion. No focal consolidation. PLEURA: No significant pleural effusion identified, no pneumothorax apparent. CARDIOVASCULAR: Cardiomediastinal silhouette stably enlarged. OSSEOUS STRUCTURES: Unchanged. VISUALIZED UPPER ABDOMEN: Normal. OTHER FINDINGS: None. IMPRESSION: Prominence of the pulmonary vasculature may be secondary to AP technique and/or pulmonary vascular congestion. No focal consolidation or pleural effusion. CT Head w/o contrast FINDINGS: HEMORRHAGE: No intracranial hemorrhage. BRAIN: No mass effect or edema. Mild atrophy. Mild chronic periventricular white matter microvascular ischemic changes. VENTRICLES: Unremarkable. No hydrocephalus. CALVARIUM: Unremarkable. PARANASAL SINUSES: Unremarkable as visualized. No significant inflammatory changes. MASTOID AIR CELLS: Unremarkable as visualized. No inflammatory changes. OTHER FINDINGS: None. IMPRESSION: No acute intracranial pathology. Scribe Attestation: Documented by Liliana Suarez, acting as a scribe for Ashlee Cisneros MD. Provider Scribe Attestation: All medical record entries made by the Scribe were at my direction and personally dictated by me. I have reviewed the chart and agree that the record accurately reflects my personal performance of the history, physical exam, medical decision making, and the department course for this patient. I have also personally directed, reviewed, and agree with the discharge instructions and disposition. Disposition - Clinical Impression Clinical Impression: Syncope, Chest pain - Disposition Disposition Time: 19:43 Condition: STABLE - Pt Status Changed To: Hospital Disposition Of: Inpatient - Admit Certification Admit to Inpatient:: After my assessment, the patient will require hospitalization for at least two midnights. This is because of the severity of symptoms shown, intensity of services needed, and/or the medical risk in this patient being treated as an outpatient. - POA Present On Arrival: None
[2018-01-05 16:31] LABS: BASO # 0.1 K/uL (0.0-0.2); BASO % 1.1 % (0.0-2.0); EOS # 0.2 K/uL (0.0-0.7); EOS % 2.6 % (0.0-4.0); HEMOGLOBIN 13.8 g/dL (12.0-18.0); LYMPH # 1.1 K/uL (1.0-4.3); LYMPH % 14.7 % (20.0-40.0); MEAN CELL VOLUME 90.4 fl (80.0-94.0); MEAN CORPUSCULAR HEMOGLOBIN 30.2 pg (27.0-31.0); MEAN CORPUSCULAR HGB CONC 33.4 g/dL (33.0-37.0); MONO # 0.9 K/uL (0.0-0.8); MONO % 12.7 % (0.0-10.0); NEUT # 5.1 K/uL (1.8-7.0); NEUT % 68.9 % (50.0-75.0); RBC 4.56 Mil/uL (4.40-5.90); RED CELL DISTRIBUTION WIDTH 14.4 % (11.5-14.5); WHITE BLOOD COUNT 7.4 K/uL (4.8-10.8)
[2018-01-05 16:39] LABS: ALB/GLOB RATIO 0.9 (1.0-2.1); ALBUMIN 4.1 g/dL (3.5-5.0); ALT/SGPT 30 U/L (21-72); AST/SGOT 22 U/L (17-59); BLOOD UREA NITROGEN 10 mg/dl (9-20); GFR AFRICAN-AMERICAN > 60; GFR NON-AFRICAN AMERICAN > 60
[2018-01-05 16:58] LABS: URINE BACTERIA RARE (<OCC); URINE BILIRUBIN NEGATIVE (NEGATIVE); URINE BLOOD NEGATIVE (NEGATIVE); URINE CLARITY CLEAR (Clear); URINE COLOR YELLOW (YELLOW); URINE GLUCOSE (UA) NEG (Normal); URINE LEUKOCYTE ESTERASE NEG Leu/uL (Negative); URINE NITRATE NEGATIVE (NEGATIVE); URINE PROTEIN NEGATIVE (NEGATIVE); URINE UROBILINOGEN 0.2-1.0 mg/dL (0.2-1.0)
--- NOTE | 2018-01-05 17:06 | RAD ---
HISTORY: Syncope COMPARISON: Chest radiograph dated 09/21/2017. FINDINGS: LUNGS: Prominence of pulmonary vasculature may be secondary to technique and/or pulmonary vascular congestion. No focal consolidation. PLEURA: No significant pleural effusion identified, no pneumothorax apparent. CARDIOVASCULAR: Cardiomediastinal silhouette stably enlarged. OSSEOUS STRUCTURES: Unchanged. VISUALIZED UPPER ABDOMEN: Normal. OTHER FINDINGS: None. IMPRESSION: Prominence of the pulmonary vasculature may be secondary to AP technique and/or pulmonary vascular congestion. No focal consolidation or pleural effusion.
[2018-01-05 17:31] LABS: INR 1.4 (0.9-1.2); PARTIAL THROMBOPLASTIN TIME 35.4 Seconds (25.6-37.1); PROTHROMBIN TIME 15.5 Seconds (9.8-13.1)
--- NOTE | 2018-01-05 18:15 | CT ---
PROCEDURE: CT HEAD WITHOUT CONTRAST. HISTORY: Syncope COMPARISON: CT head dated 09/21/2017. TECHNIQUE: Axial computed tomography images were obtained through the head/brain without intravenous contrast. Radiation dose: Total exam DLP = 2175.1 mGy-cm. This CT exam was performed using one or more of the following dose reduction techniques: Automated exposure control, adjustment of the mA and/or kV according to patient size, and/or use of iterative reconstruction technique. FINDINGS: HEMORRHAGE: No intracranial hemorrhage. BRAIN: No mass effect or edema. Mild atrophy. Mild chronic periventricular white matter microvascular ischemic changes. VENTRICLES: Unremarkable. No hydrocephalus. CALVARIUM: Unremarkable. PARANASAL SINUSES: Unremarkable as visualized. No significant inflammatory changes. MASTOID AIR CELLS: Unremarkable as visualized. No inflammatory changes. OTHER FINDINGS: None. IMPRESSION: No acute intracranial pathology.
--- NOTE | 2018-01-05 20:08 | CP.PCM.HP ---
History of Present Illness - History of Present Illness History of Present Illness: 62 yr old M presented to ED with complaint of a syncopal episode. PMHx includes nonadherence to medications or outpatient followup, uncontrolled Atrial fibrillation, uncontrolled HTN, morbid obesity, chronic left leg lymphedema and depression. Patient reports he does not remember passing out, he just remembers getting up this morning and helping his dad around the house, next thing he hears sisters voice and she helped him get up from the floor. Sister at bedside reports she walked into the living room in the house and found the patient on the floor. Patient reports feeling palpitations, SOB, acute mild substernal chest pain and left arm stiffness and numbness which resolved once he arrived in the ED. Denies urinary or stool incontinence, sister at bedside did not witness jerky movements of limbs. Patient denies weakness, dizziness or headaches. Patient reports he does not take medications because he just doesn't care sometimes since his mother in 2012. Denies suicidal or homicidal ideations. PMD: none, patient has a new patient appt scheduled at [facility] on 01/07/18 Specialists: none PMHx: uncontrolled Atrial fibrillation, uncontrolled HTN, morbid obesity, chronic left leg lymphedema and depression SurgHx: none FMHx: mother of [place], parkinsons', CAD; father is in his 80's with NIDDM, PVD s/p left BKA and right TMA, 1 sister from breast cancer at 47, 1 sister with heart disease SocHx: denies tobacco use, denies current Etoh abuse (former Etoh abuse-quit in 2012); denies drug abuse Medications: (none taken since 10/2017)-Eliquis 5mg PO BID, Aspirin 81mg PO QD, Atorvastatin 20mg PO QHS, Lisinopril 10mg PO QD, Metroprolol Tartrate 25mg PO BID Allergies: NKDA; food allergies (basil, seafood and raspberry) ED course: vitals 173/103 mmHg, Pulse 85, Temp 98.1 F, RR 20, O2 sat 100% on room air; repeat pulse 110 bpm EKG: Afib with RVR at 123 bpm, incomplete LBBB, nonspecific ST-T wave abnormalities CXR: No focal consolidation or pleural effusion CT head: no intracranial pathology labs: CBC wnl, CMP wnl, troponin negative, PT 15.35/INR 1.4/PTT 35.4, D-dimer wnl, TSH wnl, UA negative ED treatment: Lisinopril 10mg PO once, Metoprolol 25mg PO once Present on Admission - Present on Admission Any Indicators Present on Admission: No History of DVT/PE: No History of Uncontrolled Diabetes: No Urinary Catheter: No Decubitus Ulcer Present: No History Surgical Site Infection Following: None Review of Systems - Constitutional Constitutional: absent: Chills, Fever, Headache - EENT Eyes: absent: Blurred Vision, Change in Vision Ears: absent: Ear Discharge, Disequilibrium, Dizziness Nose/Mouth/Throat: absent: Nasal Congestion, Nasal Discharge - Cardiovascular Cardiovascular: Chest Pain, Dyspnea, Palpitations. absent: Lightheadedness - Respiratory Respiratory: absent: Cough, Hemoptysis - Gastrointestinal Gastrointestinal: absent: Abdominal Pain, Nausea, Vomiting - Genitourinary Genitourinary: absent: Difficulty Urinating, Dysuria - Musculoskeletal Musculoskeletal: Numbness (left arm) - Integumentary Integumentary: Swelling (chronic left lower leg ) - Neurological Neurological: absent: Confusion, Dizziness, Focal Weakness - Psychiatric Psychiatric: Depression. absent: Anxiety, Homicidal Ideation, Suicidal Ideation - Endocrine Endocrine: Palpitations. absent: Fatigue, Polydipsia, Polyuria - Hematologic/Lymphatic Hematologic: absent: Easy Bleeding, Easy Bruising Past Patient History - Past Medical History & Family History Past Medical History?: Yes - Past Social History Alcohol: None - CARDIAC Hx Atrial Fibrillation: Yes Hx Congestive Heart Failure: Yes Hx Hypertension: No - PULMONARY Hx Emphysema: No - NEUROLOGICAL Hx Seizures: No - HEENT Hx HEENT Problems: No - RENAL Hx Chronic Kidney Disease: No - ENDOCRINE/METABOLIC Hx Diabetes Mellitus Type 2: Yes (possibly) - HEMATOLOGICAL/ONCOLOGICAL Hx Human Immunodeficiency Virus (HIV): No - INTEGUMENTARY Hx Dermatological Problems: No - MUSCULOSKELETAL/RHEUMATOLOGICAL Hx Musculoskeletal Disorders: Yes Other/Comment: left leg lymphedema - GASTROINTESTINAL Hx Gastrointestinal Disorders: No - GENITOURINARY/GYNECOLOGICAL Hx Sexually Transmitted Disorders: No - PSYCHIATRIC Hx Anxiety: Yes Hx Depression: Yes - SURGICAL HISTORY Hx Surgeries: No - ANESTHESIA Hx Anesthesia: No Meds Allergies/Adverse Reactions: Allergies Allergy/AdvReac Type Severity Reaction Status Date / Time basil Allergy ANAPHYLAXIS Verified 09/21/17 01:27 raspberry Allergy RASH Verified 09/21/17 02:00 shellfish derived Allergy ANAPHYLAXIS Verified 09/21/17 01:27 Physical Exam - Constitutional Appears: No Acute Distress, Other (morbidly obese) - Head Exam Head Exam: ATRAUMATIC, NORMOCEPHALIC - Eye Exam Eye Exam: EOMI, PERRL Pupil Exam: NORMAL ACCOMODATION - ENT Exam ENT Exam: Mucous Membranes Moist - Neck Exam Neck exam: Positive for: Full Rom. Negative for: Lymphadenopathy - Respiratory Exam Respiratory Exam: Clear to Auscultation Bilateral, NORMAL BREATHING PATTERN. absent: Rales, Rhonchi, Wheezes - Cardiovascular Exam Cardiovascular Exam: Irregular Rhythm, +S1, +S2 - GI/Abdominal Exam GI & Abdominal Exam: Hernia (umbilical), Normal Bowel Sounds, Soft (obese). absent: Distended - Extremities Exam Extremities exam: Positive for: pedal edema (severe chronic left lower extremity lymphedema with statis dermatitis ). Negative for: calf tenderness - Neurological Exam Neurological exam: Alert, CN II-XII Intact, Oriented x3 - Psychiatric Exam Psychiatric exam: Normal Affect, Normal Mood Additional comments: denies suicidal or homicidal ideations - Skin Skin Exam: Dry, Warm Results - Vital Signs Recent Vital Signs: Last Vital Signs Temp 98.1 F 01/05/18 15:22 Pulse 115 H 01/05/18 19:31 Resp 18 01/05/18 19:07 BP 184/96 H 01/05/18 19:31 Pulse Ox 100 01/05/18 18:43 - Labs Result Diagrams: 01/05/18 16:25 01/05/18 16:25 Labs: Laboratory Results - last 24 hr 01/05/18 01/05/18 01/05/18 16:25 16:25 16:25 WBC 7.4 RBC 4.56 Hgb 13.8 Hct 41.2 MCV 90.4 MCH 30.2 MCHC 33.4 RDW 14.4 Plt Count 306 MPV 8.0 Neut % (Auto) 68.9 Lymph % (Auto) 14.7 L [place] % (Auto) 12.7 H Eos % (Auto) 2.6 Baso % (Auto) 1.1 Neut # (Auto) 5.1 Lymph # (Auto) 1.1 [place] # (Auto) 0.9 H Eos # (Auto) 0.2 Baso # (Auto) 0.1 PT 15.5 H INR 1.4 H APTT 35.4 D-Dimer, Quantitative 173 Sodium 142 Potassium 4.0 Chloride 104 Carbon Dioxide 25 Anion Gap 17 BUN 10 Creatinine 0.7 L Est GFR ( Amer) > 60 Est GFR (Non-Af Amer) > 60 POC Glucose (mg/dL) Random Glucose 110 Calcium 10.0 Total Bilirubin 0.7 AST 22 ALT 30 Alkaline Phosphatase 75 Troponin I < 0.0120 Total Protein 8.7 H Albumin 4.1 Globulin 4.5 H Albumin/Globulin Ratio 0.9 L TSH 3rd Generation Urine Color Urine Clarity Urine pH Ur Specific [place] Urine Protein Urine Glucose (UA) Urine Ketones Urine Blood Urine Nitrate Urine Bilirubin Urine Urobilinogen Ur Leukocyte Esterase Urine RBC (Auto) Urine Microscopic WBC Urine Bacteria 01/05/18 01/05/18 01/05/18 16:27 16:33 16:40 WBC RBC Hgb Hct MCV MCH MCHC RDW Plt Count MPV Neut % (Auto) Lymph % (Auto) [place] % (Auto) Eos % (Auto) Baso % (Auto) Neut # (Auto) Lymph # (Auto) [place] # (Auto) Eos # (Auto) Baso # (Auto) PT INR APTT D-Dimer, Quantitative Sodium Potassium Chloride Carbon Dioxide Anion Gap BUN Creatinine Est GFR ( Amer) Est GFR (Non-Af Amer) POC Glucose (mg/dL) 98 Random Glucose Calcium Total Bilirubin AST ALT Alkaline Phosphatase Troponin I Total Protein Albumin Globulin Albumin/Globulin Ratio TSH 3rd Generation 1.13 Urine Color Yellow Urine Clarity Clear Urine pH 7.0 Ur Specific [place] 1.009 Urine Protein Negative Urine Glucose (UA) Neg Urine Ketones Negative Urine Blood Negative Urine Nitrate Negative Urine Bilirubin Negative Urine Urobilinogen 0.2-1.0 Ur Leukocyte Esterase Neg Urine RBC (Auto) < 1 Urine Microscopic WBC 1 Urine Bacteria Rare Assessment & Plan - Assessment and Plan (Free Text) Assessment: 62 yr old M admitted for syncopal episode and chest pain. Has uncontrolled a- fib with RVR. 1. Syncope -acute, resolved, likely secondary to uncontrolled A-fib with RVR -EKG: a-fib with RVR at 123bpm -CXR negative, troponin negative x 1, CT head: no intracranial pathology -admit to telemetry -cardiac monitoring, f/u serial troponins 2. Chest pain -acute, resolved, likely secondary to uncontrolled A-fib with RVR -D-dimer negative, -management as above 3. A-fib with RVR -acute on chronic, uncontrolled secondary to non-adherence to medication -resume home medications: Metroprolol tartrate 25mg PO BID, Eliquis 5mg PO BID -Echo 09/21/17: global hypokinesis and mild impaired systolic dysfunction with EF 45-50% 4. Hypertension -uncontrolled secondary to nonadherence to medication -resume home meds: Lisinopril 10mg PO QD, Aspirin 81mg PO QD, Atorvastatin 20mg PO QHS -heart healthy diet -09/21/17: cholesterol 126, LDL 71, HDL 38; HbA1c 5.8 5. DVT prophylaxis -will resume Eliquis 5mg PO BID - Date & Time Date: 01/05/18 Time: 20:10
--- NOTE | 2018-01-06 10:49 | CARD ---
APPROVED REPORT EKG Measurement Heart [id number] <Conclusion> Atrial fibrillation with rapid ventricular response Incomplete left bundle branch block Nonspecific ST and T wave abnormality Abnormal ECG
--- NOTE | 2018-01-06 14:50 | CP.PCM.PN ---
Subjective - Date & Time of Evaluation Date of Evaluation: 01/06/18 Time of Evaluation: 08:00 - Subjective Subjective: 62yo M pmhx of afib, htn, depression, chronic L lower extremity lymphedema presented to the ED with possible syncope. Pt was seen and evaluated at bedside , feeling well. Presenting symptoms have resolved. Pt inquired about possibly going home tomorrow. Discussed with patient our tentative plans for treatment and stabilization. He requested cheaper alternative to Eliquis. Denies: cp/sob/n /v. Objective - Vital Signs/Intake and Output Vital Signs (last 24 hours): Temp Pulse Resp BP Pulse Ox 98.6 F 102 H 18 123/77 96 01/06/18 12:00 01/06/18 14:00 01/06/18 12:00 01/06/18 12:00 01/06/18 14:00 Intake and Output: 01/06/18 01/06/18 06:59 18:59 Intake Total 237 Output Total 500 Balance -263 - Medications Medications: Current Medications Acetaminophen (Tylenol 325mg Tab) 650 mg PO Q6 PRN PRN Reason: Pain, Mild (1-3) Aspirin (Ecotrin) 81 mg PO DAILY [facility] Last Admin: 01/06/18 10:30 Dose: 81 mg Enoxaparin Sodium (Lovenox) 150 mg SC Q12 [facility] PRN Reason: Protocol Lisinopril (Zestril) 10 mg PO DAILY [facility] Last Admin: 01/06/18 10:32 Dose: Not Given Metoprolol Tartrate (Lopressor) 50 mg PO Q12 [facility] Warfarin Sodium (Coumadin) 7.5 mg PO QD5 [facility] PRN Reason: Protocol Stop: 01/06/18 17:01 - Labs Labs: 01/05/18 16:25 01/05/18 16:25 PT 15.5 Seconds (9.8-13.1) H 01/05/18 16:25 INR 1.4 (0.9-1.2) H 01/05/18 16:25 APTT 35.4 Seconds (25.6-37.1) 01/05/18 16:25 - Eye Exam Eye Exam: EOMI - Neck Exam Neck Exam: Full ROM - Respiratory Exam Respiratory Exam: Clear to Ausculation Bilateral, NORMAL BREATHING PATTERN - Cardiovascular Exam Cardiovascular Exam: Irregular Rhythm, +S1, +S2. absent: REGULAR RHYTHM Additional comments: current hx of afib - GI/Abdominal Exam GI & Abdominal Exam: Soft, Hernia (reducible umbilical hernia), Normal Bowel Sounds - Extremities Exam Extremities Exam: Pedal Edema Additional comments: L lower extremity lymphedema - Neurological Exam Neurological Exam: Alert, Awake, CN II-XII Intact, Oriented x3 - Psychiatric Exam Psychiatric exam: Normal Affect, Normal Mood Assessment and Plan - Assessment and Plan (Free Text) Plan: 62 yr old M admitted for syncopal episode and chest pain. Has uncontrolled a- fib with RVR. 1. Syncope -acute, resolved, likely secondary to uncontrolled A-fib with RVR -EKG: a-fib with RVR at 123bpm -CXR negative, troponin negative x 1, CT head: no intracranial pathology -admit to ICU pending telemetry -cardiac monitoring, f/u serial troponins 2. Chest pain -acute, resolved, likely secondary to uncontrolled A-fib with RVR -D-dimer negative -management as above 3. A-fib with RVR -acute on chronic, uncontrolled secondary to non-adherence to medication -resume home medications: Metroprolol tartrate 25mg PO BID, -Echo 09/21/17: global hypokinesis and mild impaired systolic dysfunction with EF 45-50% - discontinue Eliquis 5mg PO BID; pt request due to cost; -Contacted [facility] pharmacist: recommended: lovenox 150 subq q 12 along with Warfarin 7.5 qdaily until therapeutic INR, which lovenox may be discontinued. 4. Hypertension -uncontrolled secondary to nonadherence to medication -resume home meds: Lisinopril 10mg PO QD, Aspirin 81mg PO QD, Atorvastatin 20mg PO QHS -heart healthy diet -09/21/17: cholesterol 126, LDL 71, HDL 38; HbA1c 5.8 5. DVT prophylaxis -Lovenox 150 mg subq and Warfarin 7.5mg Pt has clinic appt w/ Dr. Cuevas 01/07/2018
[2018-01-06] MEDS ORDERED: Enoxaparin 150 mg Syringe SC SCH (21:00)
--- NOTE | 2018-01-07 07:00 | CP.PCM.CON ---
History of Present Illness - History of Present Illness History of Present Illness: 62 year old male originally admitted to hospital for syncopal episode seen at bedside for left LE lymphedema. Patient states that he has had the lymphedema in this leg for many years. States that he used to go see Dr. Cisneros in the wound care center for management but has not gone in years due to lack of insurance coverage. Patient denies ever having any ulcerations or wounds as a result of the lymphedema and states that he applies an antibiotic cream to his leg occasionally. He has noticed drainage from the leg in the past. Patient denies any further pedal complaints at this time. He is AAO x 3 and NAD at time of examination. Denies any recent N/V/F/C/CP/SOB/D/posterior calf pain Review of Systems - Review of Systems Review of Systems: ROS as per HPI Past Patient History - Past Medical History & Family History Past Medical History?: Yes - Past Social History Smoking Status: Former Smoker - CARDIAC Hx Cardiac Disorders: Yes Hx Atrial Fibrillation: Yes Hx Congestive Heart Failure: Yes Hx Hypertension: No - PULMONARY Hx Respiratory Disorders: Yes Hx Emphysema: No - NEUROLOGICAL Hx Neurological Disorder: Yes Hx Seizures: No Hx Syncope: Yes - HEENT Hx HEENT Problems: No - RENAL Hx Chronic Kidney Disease: No - ENDOCRINE/METABOLIC Hx Endocrine Disorders: Yes Hx Diabetes Mellitus Type 2: Yes (possibly) - HEMATOLOGICAL/ONCOLOGICAL Hx AIDS: No Hx Anemia: No Hx Blood Transfusions: No Hx Blood Transfusion Reaction: No Hx Bruising: No Hx Cancer: No Hx Hepatitis A: No Hx Hepatitis B: No Hx Hepatitis C: No Hx Human Immunodeficiency Virus (HIV): No - INTEGUMENTARY Hx Dermatological Problems: No - MUSCULOSKELETAL/RHEUMATOLOGICAL Hx Musculoskeletal Disorders: Yes Hx Falls: Yes - GASTROINTESTINAL Hx Gastrointestinal Disorders: Yes Other/Comment: Hernia - GENITOURINARY/GYNECOLOGICAL Hx Sexually Transmitted Disorders: No - PSYCHIATRIC Hx Psychophysiologic Disorder: Yes Hx Anxiety: Yes Hx Depression: Yes Hx Substance Use: No - SURGICAL HISTORY Hx Surgeries: No - ANESTHESIA Hx Anesthesia: No Meds Allergies/Adverse Reactions: Allergies Allergy/AdvReac Type Severity Reaction Status Date / Time basil Allergy ANAPHYLAXIS Verified 09/21/17 01:27 raspberry Allergy RASH Verified 09/21/17 02:00 shellfish derived Allergy ANAPHYLAXIS Verified 09/21/17 01:27 - Medications Medications: Current Medications Acetaminophen (Tylenol 325mg Tab) 650 mg PO Q6 PRN PRN Reason: Pain, Mild (1-3) Aspirin (Ecotrin) 81 mg PO DAILY [facility] Last Admin: 01/06/18 10:30 Dose: 81 mg Enoxaparin Sodium (Lovenox) 100 mg SC DAILY [facility] Enoxaparin Sodium (Lovenox) 120 mg SC DAILY [facility] Lisinopril (Zestril) 10 mg PO DAILY [facility] Last Admin: 01/06/18 10:32 Dose: Not Given Metoprolol Tartrate (Lopressor) 50 mg PO Q12 [facility] Last Admin: 01/06/18 21:37 Dose: 50 mg Physical Exam - Constitutional Appears: Well, Non-toxic, No Acute Distress - Extremities Exam Additional comments: LLE focused exam: Vasc: DP/PT pulses non-palpable secondary to diffuse edematous changes to entirety of LE. Skin temperature warm to warm from proximal to distal. CFT < 3 seconds to all digits b/l Neuro: Epicritic and protective sensation grossly intact b/l Derm: Minimal xerosis noted to anterior saunders. Otherwise, no open lesions, wounds , maceration, abnormal pigmentation or abnormal growths noted b/l. Nails well manicured and normotrophic 1-10 b/l MSK: No POP to LLE. ROM and muscle strength both limited due to extreme edematous state - Neurological Exam Neurological exam: Alert, Oriented x3 - Psychiatric Exam Psychiatric exam: Normal Affect, Normal Mood Results - Vital Signs Recent Vital Signs: Last Vital Signs Temp 98.3 F 01/07/18 05:18 Pulse 100 H 01/07/18 05:18 Resp 18 01/07/18 05:18 BP 151/95 H 01/07/18 05:18 Pulse Ox 96 01/07/18 05:18 - Labs Result Diagrams: 01/05/18 16:25 01/05/18 16:25 Labs: Laboratory Results - last 24 hr 01/06/18 01/06/18 11:11 15:08 POC Glucose (mg/dL) 112 H Troponin I < 0.0120 Assessment & Plan - Assessment and Plan (Free Text) Assessment: 62 year old male originally admitted to hospital for syncopal episode seen at bedside for left LE lymphedema Plan: Patient seen and evaluated at bedside Plan discussed with attending Dr. Joya Afebrile, absent leukocytosis Continue medical management per [facility] LLE lathered with lotion and dressed with Kirlix, TRENA for compression Patient instructed that compression should feel tight but should not cause pain Instructed to seek nursing assistance to help loosen dressing in the event that it causes pain Patient also informed that he may find himself urinating more frequently No surgical intervention planned at this time Podiatry will continue to follow while patient in house - Date & Time Date: 01/07/18 Time: 06:55
--- NOTE | 2018-01-07 08:47 | CARD ---
APPROVED REPORT EKG Measurement Heart [id number] <Conclusion> Atrial fibrillation with rapid ventricular response Incomplete left bundle branch block ST & T wave abnormality, consider lateral ischemia Abnormal ECG
[2018-01-07] MEDS ORDERED: Enoxaparin 120 mg Syringe SC SCH ×2 (09:00)
[2018-01-07] MEDS ORDERED: Enoxaparin 100 mg Syringe SC SCH (09:00)
--- NOTE | 2018-01-07 09:37 | CP.PCM.PN ---
Subjective - Date & Time of Evaluation Date of Evaluation: 01/07/18 Time of Evaluation: 08:10 - Subjective Subjective: Pt seen and examined at bedside resting well. Denies overnight events. No complaints today. 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 Denies cp/sob/n/v; Able to ambulate. s/p treatment by podiatry: lotion, kirlix, prashanth Objective - Vital Signs/Intake and Output Vital Signs (last 24 hours): Temp Pulse Resp BP Pulse Ox 98.4 F 112 H 18 156/88 H 95 01/07/18 08:00 01/07/18 09:00 01/07/18 08:00 01/07/18 09:00 01/07/18 08:00 - Medications Medications: Current Medications Acetaminophen (Tylenol 325mg Tab) 650 mg PO Q6 PRN PRN Reason: Pain, Mild (1-3) Aspirin (Ecotrin) 81 mg PO DAILY [facility] Last Admin: 01/07/18 08:59 Dose: 81 mg Enoxaparin Sodium (Lovenox) 120 mg SC DAILY [facility] Last Admin: 01/07/18 08:59 Dose: 120 mg Lisinopril (Zestril) 10 mg PO DAILY [facility] Last Admin: 01/07/18 09:00 Dose: 10 mg Metoprolol Tartrate (Lopressor) 50 mg PO Q12 [facility] Last Admin: 01/07/18 09:00 Dose: 50 mg - Labs Labs: 01/05/18 16:25 01/05/18 16:25 PT 15.5 Seconds (9.8-13.1) H 01/05/18 16:25 INR 1.4 (0.9-1.2) H 01/05/18 16:25 APTT 35.4 Seconds (25.6-37.1) 01/05/18 16:25 Assessment and Plan - Assessment and Plan (Free Text) Plan: 62 yr old M admitted for syncopal episode and chest pain. Has uncontrolled a- fib with RVR. 1. Syncope -acute, resolved, likely secondary to uncontrolled A-fib with RVR -EKG: a-fib with RVR at 123bpm -CXR negative, troponin negative x 1, CT head: no intracranial pathology -admit to ICU pending telemetry -cardiac monitoring, f/u serial troponins: negative x2 2. Chest pain -acute, resolved, likely secondary to uncontrolled A-fib with RVR -D-dimer negative -management as above 3. A-fib with RVR - acute on chronic, uncontrolled secondary to non-adherence to medication (last dose of eliquis october 2017 2/2 cost) - Echo 09/21/17: global hypokinesis and mild impaired systolic dysfunction with EF 45-50% - discontinue Eliquis 5mg PO BID; pt request due to cost; - pt started on Lovenox 120 mg subq and Warfarin 5 mg 01/07/2018 after eliquiz 5mg administered 01/06/2018 4. Hypertension - uncontrolled secondary to nonadherence to medication - resume home meds: Lisinopril 10mg PO QD, Aspirin 81mg PO QD, Atorvastatin 20mg PO QHS - Metroprolol tartrate increased to 50 mg PO BID for optimal control of bp - heart healthy diet - 09/21/17: cholesterol 126, LDL 71, HDL 38; HbA1c 5.8 5. Lower extremity lymphedema - chronic history; previously treated by Dr. Toribio - podiatry: lotion, kirlix, prashanth; no surgery recommended. 6. DVT prophylaxis -Lovenox 120 mg subq and Warfarin 5 mg
[2018-01-07 11:36] VITALS: PULSE 86
--- NOTE | 2018-01-07 12:00 | CP.PCM.DIS ---
Provider - Provider Date of Admission: 01/05/18 19:43 Attending physician: Shikha Spangler MD Time Spent in preparation of Discharge (in minutes): 25 Diagnosis - Discharge Diagnosis (1) Acquired lymphedema of lower extremity Status: Acute (2) Atrial fibrillation Status: Acute Hospital Course - Lab Results Lab Results: Most Recent Lab Values WBC 7.4 K/uL (4.8-10.8) 01/05/18 16:25 RBC 4.56 Mil/uL (4.40-5.90) 01/05/18 16:25 Hgb 13.8 g/dL (12.0-18.0) 01/05/18 16:25 Hct 41.2 % (35.0-51.0) 01/05/18 16:25 MCV 90.4 fl (80.0-94.0) 01/05/18 16:25 MCH 30.2 pg (27.0-31.0) 01/05/18 16:25 MCHC 33.4 g/dL (33.0-37.0) 01/05/18 16:25 RDW 14.4 % (11.5-14.5) 01/05/18 16:25 Plt Count 306 K/uL (130-400) 01/05/18 16:25 MPV 8.0 fl (7.2-11.7) 01/05/18 16:25 Neut % (Auto) 68.9 % (50.0-75.0) 01/05/18 16:25 Lymph % (Auto) 14.7 % (20.0-40.0) L 01/05/18 16:25 Boyd % (Auto) 12.7 % (0.0-10.0) H 01/05/18 16:25 Eos % (Auto) 2.6 % (0.0-4.0) 01/05/18 16:25 Baso % (Auto) 1.1 % (0.0-2.0) 01/05/18 16:25 Neut # (Auto) 5.1 K/uL (1.8-7.0) 01/05/18 16:25 Lymph # (Auto) 1.1 K/uL (1.0-4.3) 01/05/18 16:25 Boyd # (Auto) 0.9 K/uL (0.0-0.8) H 01/05/18 16:25 Eos # (Auto) 0.2 K/uL (0.0-0.7) 01/05/18 16:25 Baso # (Auto) 0.1 K/uL (0.0-0.2) 01/05/18 16:25 PT 15.5 Seconds (9.8-13.1) H 01/05/18 16:25 INR 1.4 (0.9-1.2) H 01/05/18 16:25 APTT 35.4 Seconds (25.6-37.1) 01/05/18 16:25 D-Dimer, Quantitative 173 ng/mlDDU (0-230) 01/05/18 16:25 Sodium 142 mmol/l (132-148) 01/05/18 16:25 Potassium 4.0 MMOL/L (3.6-5.0) 01/05/18 16:25 Chloride 104 mmol/L (98-107) 01/05/18 16:25 Carbon Dioxide 25 mmol/L (22-30) 01/05/18 16:25 Anion Gap 17 (10-20) 01/05/18 16:25 BUN 10 mg/dl (9-20) 01/05/18 16:25 Creatinine 0.7 mg/dl (0.8-1.5) L 01/05/18 16:25 Est GFR ( Amer) > 60 01/05/18 16:25 Est GFR (Non-Af Amer) > 60 01/05/18 16:25 POC Glucose (mg/dL) 112 mg/dL (65-110) H 01/06/18 11:11 Random Glucose 110 mg/dL (75-110) 01/05/18 16:25 Calcium 10.0 mg/dL (8.4-10.2) 01/05/18 16:25 Total Bilirubin 0.7 mg/dl (0.2-1.3) 01/05/18 16:25 AST 22 U/L (17-59) 01/05/18 16:25 ALT 30 U/L (21-72) 01/05/18 16:25 Alkaline Phosphatase 75 U/L (38-126) 01/05/18 16:25 Troponin I < 0.0120 ng/mL (0.00-0.120) 01/06/18 15:08 Total Protein 8.7 G/DL (6.3-8.2) H 01/05/18 16:25 Albumin 4.1 g/dL (3.5-5.0) 01/05/18 16:25 Globulin 4.5 gm/dL (2.2-3.9) H 01/05/18 16:25 Albumin/Globulin Ratio 0.9 (1.0-2.1) L 01/05/18 16:25 TSH 3rd Generation 1.13 mIU/ML (0.46-4.68) 01/05/18 16:33 Urine Color Yellow (YELLOW) 01/05/18 16:40 Urine Clarity Clear (Clear) 01/05/18 16:40 Urine pH 7.0 (5.0-8.0) 01/05/18 16:40 Ur Specific [place] 1.009 (1.003-1.030) 01/05/18 16:40 Urine Protein Negative mg/dL (NEGATIVE) 01/05/18 16:40 Urine Glucose (UA) Neg mg/dL (Normal) 01/05/18 16:40 Urine Ketones Negative mg/dL (NEGATIVE) 01/05/18 16:40 Urine Blood Negative (NEGATIVE) 01/05/18 16:40 Urine Nitrate Negative (NEGATIVE) 01/05/18 16:40 Urine Bilirubin Negative (NEGATIVE) 01/05/18 16:40 Urine Urobilinogen 0.2-1.0 mg/dL (0.2-1.0) 01/05/18 16:40 Ur Leukocyte Esterase Neg Matthew/uL (Negative) 01/05/18 16:40 Urine RBC (Auto) < 1 /hpf (0-3) 01/05/18 16:40 Urine Microscopic WBC 1 /hpf (0-5) 01/05/18 16:40 Urine Bacteria Rare (<OCC) 01/05/18 16:40 - Hospital Course Hospital Course: 62 yr old M pmhx of afib with RVR, htn, chronic L lower extremity lymphedema, admitted for syncopal episode and chest pain. Syncope resolved, no residual focal neurological deficits. ACS ruled out. Metoprolol increased to 50 mg BID. Restarted anticoagulation therapy on warfarin 5 mg qDaily with monitoring PT/ INR. Lower extremity lymphedema doesnt warrant surgical intervention at this time. Pt to f/u in clinic for further management. Discharge Exam - Head Exam Head Exam: ATRAUMATIC, NORMOCEPHALIC Discharge Plan - Discharge Medications Prescriptions: Aspirin [Ecotrin] 81 mg PO DAILY #30 tabec Atorvastatin [Lipitor] 20 mg PO HS #30 tab Lisinopril [Zestril] 10 mg PO DAILY #30 tab Metoprolol Tartrate 50 mg PO TID 4 Days #12 tablet - Follow Up Plan Condition: FAIR Disposition: HOME/ ROUTINE Patient education suggested?: Yes Additional Instructions: Please follow up with confirmation of outpatient clinic appointment with Dr. Zuñiga on afternoon 01/09/2018. Continue with warfarin 5mg, and metoprolol 50 mg three times a day.
[2018-01-07 14:43] VITALS: BP 136/79; RESP 20; TEMP 98.6
[2018-01-08 07:52] VITALS: O2SAT 100
== END 2018-01-07 15:00 | disposition home or self-care (01) | DRG 139 ==
LOC: H.ER 15:20 → H.ERHOLD 19:43 → H.ICU/CCU 01-06 09:05 → H.TEL 01-06 20:49
PROVIDERS: ADMIT Family Medicine Geriatric Medicine; ATTEND Family Medicine Geriatric Medicine
DX: I48.2 Chronic atrial fibrillation (principal); E66.01 Morbid (severe) obesity due to excess calories; Z68.42 Body mass index [BMI] 45.0-49.9, adult; I89.0 Lymphedema, not elsewhere classified; R55 Syncope and collapse; R07.89 Other chest pain; I10 Essential (primary) hypertension; E11.9 Type 2 diabetes mellitus without complications; F32.9 Major depressive disorder, single episode, unspecified; Z91.14 Patient's other noncompliance with medication regimen; Z79.01 Long term (current) use of anticoagulants; Z79.82 Long term (current) use of aspirin; Z87.891 Personal history of nicotine dependence; Z91.013 Allergy to seafood